=== PATIENT | female | born 1980 | race Caucasian/White ===

== ENCOUNTER 2018-06-17 22:04 | Emergency (ER) | payer BC, OTHER ==
[2018-06-17] MEDS ORDERED: FAMOTIDINE 20 MG/2 ML VIAL IV ONE (23:07)
[2018-06-17 23:16] LABS: Urine Blood NEGATIVE (NEG); Urine Glucose NEGATIVE (NEG); Urine Protein TRACE (NEG); Urine Specific Gravity 1.025 (1.005-1.030); Urine pH 5.5 (5.0-7.0)
[2018-06-17] MEDS ORDERED: FAMOTIDINE 20 MG TAB ONE (23:25)
[2018-06-17] MEDS ORDERED: ONDANSETRON 4 MG (ODT) TAB ONE (23:25)
[2018-06-17 23:56] LABS: ALT/SGPT 21 U/L (12-78); AST/SGOT 13 U/L (15-37); Albumin 3.7 g/dL (3.4-5.0); Alkaline Phosphatase 89 U/L (45-117); BUN Blood Urea Nitrogen 15 mg/dL (7-18); Bicarbonate 27 mmol/L (21-32); Bilirubin Direct < 0.1 mg/dL (0-0.2); Bilirubin Total 0.1 mg/dL (0.2-1.0); Glucose Level 171 mg/dL (74-106); Lipase 152 U/L (73-393); Potassium 3.8 mmol/L (3.5-5.1); Protein, Total 8.1 g/dL (6.4-8.2); Sodium Level 141 mmol/L (136-145); Troponin (Emerg Dept Use Only) < 0.02 ng/mL (0.0-0.045)
[2018-06-18 00:31] LABS: Absolute Lymphocytes (CBC) 1.7 K/uL (0.7-4.9); Absolute Monocytes 0.3 K/uL (0.1-1.3); Absolute Neutrophil 8.7 K/uL (1.8-8.0); Basophils % 0.7 % (0-1.3); Eosinophils % 0.5 % (0-4.4); Hematocrit 34.7 % (36.0-45.0); Lymphocytes % 15.4 % (15.3-44.8); MPV 7.7 fL (7.6-11.3); RBC Red Blood Cell Count 4.77 M/uL (3.86-4.86)
--- NOTE | 2018-06-18 00:35 | ER ---
Nurse's Notes [facility] Name: Toribio Espino Age: 37 yrs Sex: Female : 1980 Arrival Date: 06/17/2018 Time: 22:09 Bed 17 Private MD: Diagnosis: Cholelithiasis Presentation: 06/17 22:15 Presenting complaint: Patient states: that she is having chest pain and abd bloating. fc States her stomach feels full and tight. Positive for nausea, vomiting, diarrhea and increased burping. Denies any shortness of breath. Transition of care: patient was not received from another setting of care. Onset of symptoms was June 17, 2018 at 21:00. Risk Assessment: Do you want to hurt yourself or someone else? Patient reports no desire to harm self or others. Initial Sepsis Screen: Does the patient meet any 2 criteria?. Care prior to arrival: None. 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 - Social history:: Smoking status: Patient/guardian denies using tobacco, Patient uses alcohol, occasionally. - Ebola Screening: : Patient negative for fever greater than or equal to 101.5 degrees Fahrenheit, and additional compatible Ebola Virus Disease symptoms Patient denies exposure to infectious person Patient denies travel to an Ebola-affected area in the 21 days before illness onset. Screenin:28 Abuse screen: Denies threats or abuse. Nutritional screening: No deficits noted. fc Tuberculosis screening: No symptoms or risk factors identified. Fall Risk None identified. Assessment: 22:40 General: Appears in no apparent distress. uncomfortable, Behavior is calm, cooperative, jb4 appropriate for age. Pain: Complains of pain in abdomen Pain does not radiate. Pain currently is 6 out of 10 on a pain scale. Pain began gradually. Neuro: Level of Consciousness is awake, alert, obeys commands, Oriented to person, place, time. Cardiovascular: Patient's skin is warm and dry. Respiratory: Airway is patent Respiratory effort is even, unlabored, Respiratory pattern is regular, symmetrical. GI: Abdomen is non-distended, obese, Reports lower abdominal pain, upper abdominal pain, nausea. : No signs and/or symptoms were reported regarding the genitourinary system. EENT: No signs and/or symptoms were reported regarding the EENT system. Derm: Skin is intact, Skin is pink, warm \T\ dry. Musculoskeletal: Circulation, motion, and sensation intact. 23:40 Reassessment: Patient appears in no apparent distress at this time. No changes from jb4 previously documented assessment. Patient and/or family updated on plan of care and expected duration. Pain level reassessed. Patient is alert, oriented x 3, equal unlabored respirations, skin warm/dry/pink. 06/18 00:40 Reassessment: Patient appears in no apparent distress at this time. No changes from jb4 previously documented assessment. Patient and/or family updated on plan of care and expected duration. Pain level reassessed. Patient is alert, oriented x 3, equal unlabored respirations, skin warm/dry/pink. Vital Signs: 06/17 22:15 Weight 138.8 kg (R); Height 5 ft. 4 in. (162.56 cm) (R); Pain 8/10; fc 22:56 BP 165 / 86; Pulse 82; Resp 16; Temp 99.2(O); Pulse Ox 98% on R/A; jb4 23:15 BP 128 / 60; Pulse 81; Resp 16; Pulse Ox 100% on R/A; jb4 06/18 00:30 BP 128 / 66; Pulse 84; Resp 16; Pulse Ox 100% on R/A; jb4 06/17 22:15 Body Mass Index 52.52 (138.80 kg, 162.56 cm) ED Course: 06/17 22:09 Patient arrived in ED. as 22:15 Arm band placed on Patient placed in an exam room, on a stretcher. fc 22:15 Pulse ox on. NIBP on. jb4 22:15 Patient maintains SpO2 saturation greater than 95% on room air. jb4 22:27 Triage completed. fc 22:28 Nathalie William FNP-C is [facility]. kb 22:28 Juarez Rogers MD is Attending Physician. kb 22:28 Patient has correct armband on for positive identification. Placed in gown. Bed in low fc position. Call light in reach. 22:40 Asad Woods, RN is Primary Nurse. jb4 22:40 Urine collected: clean catch specimen, clear, casi colored, Amount Voided: 20mL EKG jp3 done, by ED staff, reviewed by Nathalie RAE. 22:59 Ultrasound completed. hr 22:59 US Abdomen Limited In Process Unspecified. EDMS 23:10 Missed attempt(s): 22 gauge in right forearm. Bleeding controlled, band aid applied, jp3 catheter tip intact. 03 00:49 No provider procedures requiring assistance completed. Patient did not have IV access jb4 during this emergency room visit. Administered Medications: 06/17 23:13 Not Given (Other Intervention Used): Pepcid 20 mg IVP once kb 23:18 Drug: Zofran 4 mg Route: PO; jb4 06/18 00:38 Follow up: Response: No adverse reaction; Nausea is decreased jb4 06/17 23:25 Drug: Pepcid 20 mg Route: PO; jb4 06/18 00:38 Follow up: Response: No adverse reaction; Marked relief of symptoms jb4 Outcome: 00:34 Discharge ordered by MD. kb 00:49 Discharged to home ambulatory. jb4 00:49 Condition: stable 00:49 Discharge instructions given to patient, Instructed on discharge instructions, follow up and referral plans. medication usage, Demonstrated understanding of instructions, follow-up care, medications, Prescriptions given X 2. 00:50 Patient left the ED. jb4 Signatures: Dispatcher [employer] EDCA Nathalie William FNP-C FNP-Ivonne Osborne Felicia, RN RN fc Martinez, Amelia as Asad Woods, RN RN jb4 Willard Delgado jp3 Corrections: (The following items were deleted from the chart) 00:46 06/17 22:40 Pain: Complains of pain in abdomen Pain does not radiate. Pain currently is jb4 6 out of 10 on a pain scale. jb4
--- NOTE | 2018-06-18 00:35 | EDPHYS ---
Physician Documentation [facility] Name: Toribio Espino Age: 37 yrs Sex: Female : 1980 Arrival Date: 06/17/2018 Time: 22:09 Bed 17 Private MD: ED Physician Juarez Rogers HPI: 06/17 23:51 This 37 yrs old Female presents to ER via Ambulatory with complaints of Chest kb Pain, Abdominal Pain. 23:51 The patient presents with abdominal pain in the right upper quadrant. Onset: The kb symptoms/episode began/occurred today. The symptoms do not radiate. Associated signs and symptoms: Pertinent positives: nausea and vomiting. The symptoms are described as constant. Modifying factors: The symptoms are alleviated by nothing, the symptoms are aggravated by pressure. Severity of pain: At its worst the pain was moderate in the emergency department the pain is unchanged. The patient has not experienced similar symptoms in the past. The patient has not recently seen a physician. 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 - Social history:: Smoking status: Patient/guardian denies using tobacco, Patient uses alcohol, occasionally. - Ebola Screening: : Patient negative for fever greater than or equal to 101.5 degrees Fahrenheit, and additional compatible Ebola Virus Disease symptoms Patient denies exposure to infectious person Patient denies travel to an Ebola-affected area in the 21 days before illness onset. ROS: 23:47 Constitutional: Negative for fever, chills, and weight loss, ENT: Negative for injury, kb pain, and discharge, Neck: Negative for injury, pain, and swelling, Respiratory: Negative for shortness of breath, cough, wheezing, and pleuritic chest pain, Back: Negative for injury and pain, MS/Extremity: Negative for injury and deformity, Skin: Negative for injury, rash, and discoloration, Neuro: Negative for headache, weakness, numbness, tingling, and seizure. 23:47 Cardiovascular: Positive for chest pain, of the anterior aspect of right upper chest. 23:47 Abdomen/GI: Positive for abdominal pain, nausea and vomiting, belching. Exam: 23:47 Constitutional: This is a well developed, well nourished patient who is awake, alert, kb and in no acute distress. Head/Face: Normocephalic, atraumatic. Chest/axilla: Normal chest wall appearance and motion. Nontender with no deformity. No lesions are appreciated. Cardiovascular: Regular rate and rhythm with a normal S1 and S2. No gallops, murmurs, or rubs. Normal PMI, no JVD. No pulse deficits. Respiratory: Lungs have equal breath sounds bilaterally, clear to auscultation and percussion. No rales, rhonchi or wheezes noted. No increased work of breathing, no retractions or nasal flaring. Back: No spinal tenderness. No costovertebral tenderness. Full range of motion. Skin: Warm, dry with normal turgor. Normal color with no rashes, no lesions, and no evidence of cellulitis. MS/ Extremity: Pulses equal, no cyanosis. Neurovascular intact. Full, normal range of motion. Neuro: Awake and alert, GCS 15, oriented to person, place, time, and situation. Cranial nerves II-XII grossly intact. Motor strength 5/5 in all extremities. Sensory grossly intact. Cerebellar exam normal. Normal gait. 23:47 Abdomen/GI: Inspection: obese Bowel sounds: normal, in all quadrants, Palpation: soft, in all quadrants, moderate abdominal tenderness, in the right upper quadrant. Vital Signs: 22:15 Weight 138.8 kg (R); Height 5 ft. 4 in. (162.56 cm) (R); Pain 8/10; fc 22:56 BP 165 / 86; Pulse 82; Resp 16; Temp 99.2(O); Pulse Ox 98% on R/A; jb4 23:15 BP 128 / 60; Pulse 81; Resp 16; Pulse Ox 100% on R/A; jb4 0315 00:30 BP 128 / 66; Pulse 84; Resp 16; Pulse Ox 100% on R/A; jb4 06/17 22:15 Body Mass Index 52.52 (138.80 kg, 162.56 cm) fc MDM: 06/17 22:29 Patient medically screened. kb 23:47 Data reviewed: vital signs, nurses notes. Data interpreted: Pulse oximetry: on room air kb is 100 %. Interpretation: normal. 06/18 00:34 Counseling: I had a detailed discussion with the patient and/or guardian regarding: the kb historical points, exam findings, and any diagnostic results supporting the discharge/admit diagnosis, lab results, radiology results, the need for outpatient follow up, a family practitioner, a general surgeon, to return to the emergency department if symptoms worsen or persist or if there are any questions or concerns that arise at home. 06/17 22:34 Order name: Hepatic Function; Complete Time: 23:59 kb 06/17 22:34 Order name: Basic Metabolic Panel; Complete Time: 23:59 kb 06/17 22:34 Order name: CBC with Diff; Complete Time: 00:33 kb 06/17 22:34 Order name: Lipase; Complete Time: 23:59 kb 06/17 22:34 Order name: Troponin (emerg Dept Use Only); Complete Time: 23:59 kb 06/17 23:07 Order name: Urine Dipstick--Ancillary (enter results); Complete Time: 23:17 mw2 06/17 22:34 Order name: Labs collected and sent; Complete Time: 23:20 kb 06/17 22:34 Order name: EKG; Complete Time: 22:35 kb 06/17 22:34 Order name: US Abdomen Limited kb 06/17 23:07 Order name: Urine --Ancillary (enter results); Complete Time: 23:17 mw2 06/17 22:34 Order name: EKG - Nurse/Tech; Complete Time: 22:40 kb Administered Medications: 06/17 23:13 Not Given (Other Intervention Used): Pepcid 20 mg IVP once kb 23:18 Drug: Zofran 4 mg Route: PO; 4 06/18 00:38 Follow up: Response: No adverse reaction; Nausea is decreased 06/17 23:25 Drug: Pepcid 20 mg Route: PO; 4 06/18 00:38 Follow up: Response: No adverse reaction; Marked relief of symptoms jb4 Disposition: 06/18/18 00:34 Discharged to Home. Impression: Cholelithiasis. - Condition is Stable. - Discharge Instructions: Cholelithiasis, [id number]. - Prescriptions for Bentyl 20 mg Oral Tablet - take 1 tablet by ORAL route every 6 hours As needed; 20 tablet. Zofran 4 mg Oral Tablet - take 1 tablet by ORAL route every 6 hours As needed; 20 tablet. - Medication Reconciliation Form, Thank You Letter, Antibiotic Education, Prescription Opioid Use form. - Follow up: Emergency Department; When: As needed; Reason: Worsening of condition. Follow up: Private Physician; When: 2 - 3 days; Reason: Recheck today's complaints, Continuance of care, Re-evaluation by your physician. Addendum: 06/20/2018 19:36 Co-signature as Attending Physician, Juarez Rogers MD. g s Signatures: Dispatcher [employer] EDMS Nathalie William, BUTCH CHENG-Jaquelin Bolivar RN RN Asad Woods RN RN jb4 Juarez Rogers MD MD Corrections: (The following items were deleted from the chart) 06/18 00:45 06/17 22:34 IV Saline Lock ordered. kb jb4 06/18 00:50 00:34 06/18/2018 00:34 Discharged to Home. Impression: Cholelithiasis. Condition is jb4 Stable. Forms are Medication Reconciliation Form, Thank You Letter, Antibiotic Education, Prescription Opioid Use. Follow up: Emergency Department; When: As needed; Reason: Worsening of condition. Follow up: Private Physician; When: 2 - 3 days; Reason: Recheck today's complaints, Continuance of care, Re-evaluation by your physician. kb
[2018-06-18 01:44] VITALS: TEMP 99.2
[2018-06-18 01:45] VITALS: O2SAT 100
[2018-06-18 01:46] VITALS: BP 128/66
--- NOTE | 2018-06-18 05:28 | EKG ---
Test Date: 2018-06-17 Test Time: 22:39:26 Hi Teacher: YANDY MEASUREMENT RESULTS: Intervals: Rate: 72 AZ: 128 QRSD: 80 QT: 420 QTc: 459 Delta: P: 40 AZ: 128 QRS: 25 T: 29 INTERPRETIVE STATEMENTS: Normal sinus rhythm Normal ECG No previous ECG available for comparison Electronically Signed On 06-18-18 05:27:33 CDT by Antwon Zamudio
--- NOTE | 2018-06-18 07:06 | RAD REPORT ---
EXAM DESCRIPTION: US - Abdomen Exam Limited - 06/17/2018 10:59 pm CLINICAL HISTORY: Abdominal pain, nausea and vomiting Preliminary findings provided at the time of the study. COMPARISON: None. FINDINGS: Multiple variably sized mobile gallstones are identified within a normal-sized gallbladder . There is no wall thickening or pericholecystic fluid. No duct stone or biliary tree dilatation. Common bile duct assessment was limited. IMPRESSION: Normal gallbladder and biliary tree ultrasound. No duct stones or biliary tree dilatation identified. Biliary tree assessment was limited. If there a re laboratory or clinical findings concerning for biliary obstruction, MRCP imaging may be helpful.
== END 2018-06-18 00:50 | disposition home or self-care (01) ==
LOC: ER 22:04
DX: K80.20 Calculus of gallbladder without cholecystitis without obstruction (principal); E11.9 Type 2 diabetes mellitus without complications; E78.00 Pure hypercholesterolemia, unspecified; F32.9 Major depressive disorder, single episode, unspecified; Z79.4 Long term (current) use of insulin
CPT/HCPCS: 36415; 76705; 80048; 80076; 81003; 81025; 83690; 84484; 85025; 93005; 99284

== ENCOUNTER 2018-10-02 23:27 | Emergency (ER) | payer BC ==
--- OUTSIDE RECORDS SUMMARY | 2018-10-02 23:30 | XMS REPORT ---
:1980 Author Organization [facility] Address [address] [place] [address] Care Team Providers Name Role Phone Unavailable Unavailable Unavailable Payers Payer Name Policy Type Policy Number Effective Date Expiration Date Problems This patient has no known problems. Allergies, Adverse Reactions, Alerts Allergy Allergy Status Severity Reaction(s) Onset Inactive Treating Comments Name Type Date Date Clinician No Known DA Active U 2018-08 Allergies -14 00:00:0 0 Medications This patient has no known medications. Results Test Description Test Time Test Comments Text Results Atomic Results Result Comments CERVIX,BIOPSY 2018-08-19 RUN DATE: 16:42:00 08/20/18 [facility] PAGE 1 RUN TIME: 1840 Specimen Inquiry RUN USER: INTERFACE PATIENT: GARRET CAROLINA LOC: IVAN U #: [id number] AGE/SX: 37/F ROOM: RE08/18/18REG DR: Jerome Murcia DO : 84 BED: DIS: STATUS: [facility] TLOC: SPEC #: [id number] RECD: 08/18/18 STATUS: YOANNA AVRILElvis # : [id number] MIRA: 08/18/18- SUBM DR: Jerome Murcia DO ENTERED: 08/18/18-1209 SP TYPE: CERVIXBX OTHR DR: ORDERED: LEVEL IV/ 3 CODES: [id number] - SOFT TISSUES, N [id number] - UTERINE CERVIX [id number] - ENDOCERVIX PROCEDURES: LEVEL IV (Incomplete) TISSUES: UTERINE CERVIX, NOS - CERVICAL BIOPSY ENDOCERVIX - ENDOCERVICAL CURETTINGS SOFT TISSUES, NOS - LIPOMA CLINICAL HISTORY 37 year old, ASC-H, lipoma (wpd) FINAL DIAGNOSIS Cervix, cone biopsy: - high-grade squamous intraepithelial lesion (MANAV 3) with focus of invasive squamous carcinoma (greatest horizontal dimension of invasive carcinoma - 1.1 cm; maximum depth of invasion - 1.3 cm) - lymphovascular invasion - not identified - margins - uncertain for involvement by high-grade dysplasia (a few fragments of high- grade dysplasia are detached from the main specimen; the relationship of these fragments to the margin is uncertain) - margins - no definite invasive carcinoma identified Endocervix, curettings: - few fragments of high-grade squamous intraepithelial lesion identified Designated "lipoma", excision: - mature adipose tissue, consistent with lipoma COMMENT: The [facility], [address] [place] [address], [address], [place] [address]. The interpretation is provided by [facility], [address] [place] [address]. Positive and/or negative controls received from [facility] stained appropriately. RESULTS: CONTINUED ON NEXT PAGE RUN DATE: 08/20/18 [facility] PAGE 2 RUN TIME: 1840 Specimen Inquiry RUN USER: INTERFACE SPEC #: [id number] PATIENT: GARRET CAROLINA #[id number] (Continued) FINAL DIAGNOSIS (Continued) P16 stain (block B1) - Positive block staining in few fragments of high-grade squamous dysplasia. COMMENT: Dr. Murcia's office is notified of the results by telephone on 08/20/18 at approximately 4:00 p.m. They will leave a message for Dr. Murcia regarding the abnormal results as detailed in this report. Tissue code 1 CPT code(s): 50881, 77378, 73278, 03902-88 pkg/wpd 08/19/18 pkg/kr dt: 08/20/18 pkg/wpd 08/20/18 GROSS DESCRIPTION ANATOMIC SOURCE OF TISSUE (per Requisition): 1. Cervical biopsy, stitch at 12:00 2. Endocervical curetting 3. Lipoma Each specimen is labeled with the patient's name and medical record number. Specimen #1 is designated "cervical biopsy, stitch at 12:00" and consists of a 1.7 x 1.2 cm nina-pink, rubbery, conical tissue excised to a depth of 0.3 cm. There is an identifiable suture which is designated by the surgeon as 12:00. The ectocervix is pink-white and smooth with an eccentrically located 0.4 cm slit-like os. The endocervix is nina-red, hemorrhagic and slightly granular with adherent blood-tinged mucoid material. Ink code: Ectocervix - black, endocervix - blue. Section code: A1 - 12:00 half, A2 - 6:00 half. Specimen #2 is designated "endocervical curetting" and consists of a 1.0 x 0.6 x 0.2 cm aggregate of blood-tinged mucoid material admixed with a scant amount of possible soft tissue, submitted in toto as B1. Specimen #3 is designated "lipoma" and consists of a 7.5 x 5.5 x 3.5 cm pink-yellow, lobulated, well-incapsulated fatty mass with overlying skin. The cut surfaces are bright yellow and homogenous. There are no areas of hemorrhage or necrosis. The epidermis is nina and slightly granular. The surgical resection margin is inked blue and patient intake representative sections are submitted as C1 and C2. gustavo/wpd 08/18/18 @ 1414 CONTINUED ON NEXT PAGE RUN DATE: 08/20/18 [facility] PAGE 3 RUN TIME: 1840 Specimen Inquiry RUN USER: INTERFACE SPEC #: [id number] PATIENT: GARRET CAROLINA #[id number] (Continued) MICROSCOPIC DESCRIPTION Specimen #1 consists of ecto- and endocervix including transformation zone. Severe squamous dysplasia is present and a focus of moderately- differentiated invasive squamous carcinoma is identified. No lymphovascular invasion is identified. The margins of resection are uncertain as fragments of high-grade squamous dysplasia are present detached from the main specimen and their relationship to the margin is uncertain. Specimen #2 consists of mostly unremarkable fragments of endocervical tissue. A few fragments of high -grade dysplastic squamous epithelial cells are present. Specimen #3 consists of skin and a nodular mass composed of mature adipose tissue. No atypia or malignancy is identified. pkg/greyson 08/19 Surgical Pathology Cancer Case Summary Protocol posting date: November 2017 UTERINE CERVIX: Excision Procedure: - Cone excision Tumor Size: Greatest dimension (centimeters): 1.1 cm Histologic Type: - Squamous cell carcinoma, NOS Histologic Grade: - G2: Moderately-differentiated Stromal Invasion: Depth of stromal invasion (millimeters): 13 mm Horizontal extent longitudinal/length (if applicable) (millimeters): 11 mm Endocervical Margin: - Uninvolved by invasive carcinoma Ectocervical Margin: - Uninvolved by invasive carcinoma Deep Margin: - Uninvolved by invasive carcinoma Lymphovascular Invasion: - Not identified CONTINUED ON NEXT PAGE RUN DATE: 08/20/18 [facility] PAGE 4 RUN TIME: 184 Specimen Inquiry RUN USER: INTERFACE SPEC #: [id number] PATIENT: CAITYGARRET #[id number] (Continued) MICROSCOPIC DESCRIPTION (Continued) Additional Pathologic Findings: - High-grade squamous intraepithelial lesion (MANAV 2 or 3) ochoa/greyson 08/20/18 Signed Mellissa Sterling 08/19/18 1642 END OF REPORT CERVIX,BIOPSY 2018-08-19 RUN DATE: 16:42:00 09/01/18 [facility] PAGE 1 RUN TIME: 1010 Specimen Inquiry RUN USER: INTERFACE PATIENT: GARRET CAROLINA LOC: BryonCLARKE U #: [id number] AGE/SX: 37/F ROOM: RE08/18/18CADE DR: Jerome Murcia DO : 84 BED: DIS: STATUS: DEP SDC TLOC: SPEC #: [id number] RECD: 08/18/18 STATUS: YOANNA REQ # : [id number] MIRA: 08/18/18- SUBM DR: Jerome Murcia DO ENTERED: 08/18/18-1210 SP TYPE: CERVIXBX OTHR DR: Alessia Thomas MD ORDERED: LEVEL IV/ 3, P16 PEROX AB ADDENDUM FINDINGS Addendum #1 Entered: 09/01/18 This addendum is a corrected report to correct the dimensional units of the tumor from "cm" to "mm". The remainder of the report is unchanged. COMMENT: At the request of Dr. Hernandes, the report is re-reviewed along with the histologic sections. It was noted that the measurements for the invasive carcinoma were inadvertently reported in centimeters as opposed to millimeters. The invasive carcinoma was remeasured on the histologic sections and it is confirmed that the greatest horizontal dimension of the invasive carcinoma is 1.1 mm (not cm) and that the maximum depth of the invasive carcinoma is 1.3 mm (not cm). An addendum with the corrected findings is issued. The patient and Dr. Jerome Murcia were contacted by myself by telephone at approximately 4:30 and 5:00 p.m., respectively. I discussed the situation with the patient and relayed the fact that the tumor was much smaller than what was originally reported and that an addendum report would be issued and sent to both Dr. Murcia and Dr. Hernandes. I encouraged the patient to follow up, as high-grade dysplasia was identified in the curetting specimen and I could not be certain if the margins of the cone were free of high-grade dysplasia or not. I also spoke to Dr. Murcia, informing her of my conversation with the patient and informing her that an addendum report with the corrected measurements would be faxed to her office. CORRECTED FINAL DIAGNOSIS: Cervix, cone biopsy: - high-grade squamous intraepithelial lesion (MANAV 3) with focus of invasive squamous carcinoma (greatest horizontal dimension of invasive carcinoma - 1.1 mm; maximum depth of invasion - 1.3 mm) - lymphovascular invasion - not identified - margins - uncertain for involvement by high-grade dysplasia (a few fragments of high-grade dysplasia are detached from the main specimen; the relationship of these fragments to the margin is uncertain) - margins - no definite invasive carcinoma identified Endocervix, curettings: - few fragments of high-grade squamous intraepithelial lesion identified Designated "lipoma", excision: - mature adipose tissue, consistent with lipoma CONTINUED ON NEXT PAGE RUN DATE: 09/01/18 [facility] PAGE 2 RUN TIME: 1010 Specimen Inquiry RUN USER: INTERFACE SPEC #: [id number] PATIENT: GARRET CAROLINA #[id number] (Continued) ADDENDUM FINDINGS (Continued) Mellissa Sterling M.D., Pathologist/wpd September 01, 2018 @ 0900 COMMENT: The following technical components were performed at [facility], [address] [place] [address], [address], [place] [address]. The interpretation is provided by [facility], [address] [place] [address], [place] [address]. Positive and/or negative controls received from [facility] stained appropriately. RESULTS: P16 stain (block B1) - Positive block staining in few fragments of high-grade squamous dysplasia. COMMENT: Dr. Murcia's office is notified of the results by telephone on 08/20/18 at approximately 4:00 p.m. They will leave a message for Dr. Murcia regarding the abnormal results as detailed in this report. Tissue code 1 CPT code(s): 39690, 29819, 18662, 63160-57 pkg/wpd 08/19/18 pkg/kr dt: 08/20/18 pkg/wpd CORRECTED MICROSCOPIC DESCRIPTION: Specimen #1 consists of ecto- and endocervix including transformation zone. Severe squamous dysplasia is present and a focus of moderately- differentiated invasive squamous carcinoma is identified. No lymphovascular invasion is identified. The margins of resection are uncertain as fragments of high-grade squamous dysplasia are present detached from the main specimen and their relationship to the margin is uncertain. Specimen #2 consists of mostly unremarkable fragments of endocervical tissue. A few fragments of high-grade dysplastic squamous epithelial cells are present. Specimen #3 consists of skin and a nodular mass composed of mature adipose tissue. No atypia or malignancy is identified. pkg/wpd 08/19/18 Surgical Pathology Cancer Case Summary CONTINUED ON NEXT PAGE RUN DATE: 09/01/18 [facility] PAGE 3 RUN TIME: 1010 Specimen Inquiry RUN USER: INTERFACE SPEC #: [id number] PATIENT: GARRET CAROLINA #[id number] (Continued) ADDENDUM FINDINGS (Continued) Protocol posting date: November 2017 UTERINE CERVIX: Excision Procedure: - Cone excision Tumor Size: Greatest dimension (centimeters): 1.1 mm Histologic Type: - Squamous cell carcinoma, NOS Histologic Grade: - G2: Moderately-differentiated Stromal Invasion: Depth of stromal invasion (millimeters): 1.3 mm Horizontal extent longitudinal/length (if applicable) (millimeters): 1.1 mm Endocervical Margin: - Uninvolved by invasive carcinoma Ectocervical Margin: - Uninvolved by invasive carcinoma Deep Margin: - Uninvolved by invasive carcinoma Lymphovascular Invasion: - Not identified Additional Pathologic Findings: - High-grade squamous intraepithelial lesion (MANAV 2 or 3) pktammy/greyson 08/20/18 GROSS DESCRIPTION: (unchanged) ANATOMIC SOURCE OF TISSUE (per Requisition): 1. Cervical biopsy, stitch at 12:00 2. Endocervical curetting 3. Lipoma Each specimen is labeled with the patient's name and medical record number. Specimen #1 is designated "cervical biopsy, stitch at 12:00" and consists of a 1.7 x CONTINUED ON NEXT PAGE RUN DATE: 09/01/18 [facility] PAGE 4 RUN TIME: 1010 Specimen Inquiry RUN USER: INTERFACE SPEC #: [id number] PATIENT: GARRET CAROLINA #[id number] (Continued) ADDENDUM FINDINGS (Continued) 1.2 cm nina-pink, rubbery , conical tissue excised to a depth of 0.3 cm. There is an identifiable suture which is designated by the surgeon as 12:00. The ectocervix is pink-white and smooth with an eccentrically located 0.4 cm slit-like os. The endocervix is nina-red, hemorrhagic and slightly granular with adherent blood-tinged mucoid material. Ink code: Ectocervix - black, endocervix - blue. Section code : A1 - 12:00 half, A2 - 6:00 half. Specimen #2 is designated "endocervical curetting" and consists of a 1.0 x 0.6 x 0.2 cm aggregate of blood-tinged mucoid material admixed with a scant amount of possible soft tissue, submitted in toto as B1. Specimen #3 is designated "lipoma" and consists of a 7.5 x 5.5 x 3.5 cm pink-yellow, lobulated, well-incapsulated fatty mass with overlying skin. The cut surfaces are bright yellow and homogenous. There are no areas of hemorrhage or necrosis. The epidermis is nina and slightly granular. The surgical resection margin is inked blue and patient intake representative sections are submitted as C1 and C2. gustavo/wpd 08/18/18 @ 1414 Addendum Signed Mellissa Sterling 09/01/18 1010 (prelim) AsherMellissa 09/01/18 1010 CODES: [id number] - SOFT TISSUES, N [id number] - UTERINE CERVIX [id number] - ENDOCERVIX COPIES TO: Alessia Thomas MD [address] [place] [address] [email or web address] Jerome Murcia DO [address] [place], [place] [id number] PROCEDURES: LEVEL IV (Incomplete) P16 PEROX AB ( Incomplete) CONTINUED ON NEXT PAGE RUN DATE: 09/01/18 [facility] PAGE 5 RUN TIME: 1010 Specimen Inquiry RUN USER: INTERFACE SPEC #: [id number] PATIENT: GARRET CAROLINA #[id number] (Continued) TISSUES: UTERINE CERVIX, NOS - CERVICAL BIOPSY ENDOCERVIX - ENDOCERVICAL CURETTINGS SOFT TISSUES, NOS - LIPOMA CLINICAL HISTORY 37 year old, ASC-H, lipoma (wpd) FINAL DIAGNOSIS Cervix, cone biopsy: - high-grade squamous intraepithelial lesion (MANAV 3) with focus of invasive squamous carcinoma (greatest horizontal dimension of invasive carcinoma - 1.1 cm; maximum depth of invasion - 1.3 cm) - lymphovascular invasion - not identified - margins - uncertain for involvement by high-grade dysplasia (a few fragments of high-grade dysplasia are detached from the main specimen; the relationship of these fragments to the margin is uncertain) - margins - no definite invasive carcinoma identified Endocervix, curettings: - few fragments of high-grade squamous intraepithelial lesion identified Designated "lipoma", excision: - mature adipose tissue, consistent with lipoma COMMENT: The following technical components were performed at [facility] , [address] [place] [address], [address], [place] [address]. The interpretation is provided by [facility], [address] [place] [address]. Positive and/or negative controls [facility] from [facility] stained appropriately. RESULTS: P16 stain (block B1) - Positive block staining in few fragments of high-grade squamous dysplasia. COMMENT: Dr. Murcia's office is notified of the results by telephone on 08/20/18 at approximately 4:00 p.m. They will leave a message for Dr. Murcia regarding the abnormal results as detailed in this report. Tissue code 1 CPT code(s): 89096, 10812, 53842, 57224-11 pkg/wpd 08/19/18 pkg/kr dt : 08/20/18 pkg/wpd 08/20/18 CONTINUED ON NEXT PAGE RUN DATE: 09/01/18 [facility] PAGE 6 RUN TIME: 1010 Specimen Inquiry RUN USER: INTERFACE SPEC #: [id number] PATIENT: GARRET CAROLINA #[id number] (Continued) GROSS DESCRIPTION ANATOMIC SOURCE OF TISSUE (per Requisition): 1. Cervical biopsy, stitch at 12:00 2. Endocervical curetting 3. Lipoma Each specimen is labeled with the patient's name and medical record number. Specimen #1 is designated " cervical biopsy, stitch at 12:00" and consists of a 1.7 x 1.2 cm nina-pink, rubbery, conical tissue excised to a depth of 0.3 cm. There is an identifiable suture which is designated by the surgeon as 12:00. The ectocervix is pink-white and smooth with an eccentrically located 0.4 cm slit-like os. The endocervix is nina-red, hemorrhagic and slightly granular with adherent blood-tinged mucoid material. Ink code: Ectocervix - black, endocervix - blue. Section code: A1 - 12:00 half, A2 - 6:00 half. Specimen #2 is designated "endocervical curetting" and consists of a 1.0 x 0.6 x 0.2 cm aggregate of blood-tinged mucoid material admixed with a scant amount of possible soft tissue, submitted in toto as B1. Specimen #3 is designated "lipoma" and consists of a 7.5 x 5.5 x 3.5 cm pink-yellow, lobulated, well-incapsulated fatty mass with overlying skin. The cut surfaces are bright yellow and homogenous. There are no areas of hemorrhage or necrosis. The epidermis is nina and slightly granular. The surgical resection margin is inked blue and patient intake representative sections are submitted as C1 and C2. gustavo/wpd 08/18/18 @ 3324 MICROSCOPIC DESCRIPTION Specimen #1 consists of ecto- and endocervix including transformation zone. Severe squamous dysplasia is present and a focus of moderately-differentiated invasive squamous carcinoma is identified. No lymphovascular invasion is identified. The margins of resection are uncertain as fragments of high-grade squamous dysplasia are present detached from the main specimen and their relationship to the margin is uncertain. Specimen #2 consists of mostly unremarkable fragments of endocervical tissue. A few fragments of high-grade dysplastic squamous epithelial cells are present. Specimen #3 consists of skin and a nodular mass composed of mature adipose tissue. No atypia or malignancy is identified. ochoa/wpd 08/19/18 Surgical Pathology Cancer Case Summary Protocol posting date: November 2017 CONTINUED ON NEXT PAGE RUN DATE: 09/01/18 [facility] PAGE 7 RUN TIME: 1010 Specimen Inquiry RUN USER: INTERFACE SPEC #: [id number] PATIENT: GARRET CAROLINA #[id number] (Continued) MICROSCOPIC DESCRIPTION (Continued) UTERINE CERVIX: Excision Procedure: - Cone excision Tumor Size: Greatest dimension (centimeters): 1.1 cm Histologic Type: - Squamous cell carcinoma, NOS Histologic Grade: - G2: Moderately-differentiated Stromal Invasion: Depth of stromal invasion (millimeters): 13 mm Horizontal extent longitudinal/length (if applicable) (millimeters) : 11 mm Endocervical Margin: - Uninvolved by invasive carcinoma Ectocervical Margin: - Uninvolved by invasive carcinoma Deep Margin: - Uninvolved by invasive carcinoma Lymphovascular Invasion: - Not identified Additional Pathologic Findings: - High-grade squamous intraepithelial lesion (MANAV 2 or 3) ochoa/greyson 08/20/18 Signed Mellissa Sterling 08/19/18 1642 END OF REPORT GLUBED 2018-08-18 10:35:00 Test Item Value Reference Range Comments GLUBED (test code=GLUBED) 147 mg/dL 65-110 [id number] 07:41:00 Test Item Value Reference Range Comments GLUBED (test code=GLUBED) 143 mg/dL 65-110 CHEMISTRY 7 [id number] 15:49:00 Test Item Value Reference Range Comments SODIUM (test code=NA) 141 mEq/L 135-145 POTASSIUM (test code=K) 4.1 mEq/L 3.5-5.0 CHLORIDE (test code=CL) 104 mEq/L 100-115 CARBON DIOXIDE (test code=CO2) 27 mEq/L 22-31 ANION GAP (test code=GAP) 14.00 10-20 GLUCOSE (test code=GLU) 218 mg/dL 65-110 BLOOD UREA NITROGEN (test code=BUN) 13 mg/dL 7-18 GLOMERULAR FILTRATION RATE (test code=GFR) 82 ml/min >60 CREATININE (test code=CREAT) 0.8 mg/dL 0.5-1.0 CALCIUM (test code=CA) 8.3 mg/dL 8.4-10.2 HCG SERUM [id number] 15:49:00 Test Item Value Reference Range Comments HCG SERUM QUAL (test code=HCGQL) NEGATIVE CHEMISTRY 7 [id number] 15:42:00 Test Item Value Reference Range Comments SODIUM (test code=NA) mEq/L 135-145 POTASSIUM (test code=K) mEq/L 3.5-5.0 CHLORIDE (test code=CL) mEq/L 100-115 CARBON DIOXIDE (test code=CO2) mEq/L 22-31 ANION GAP (test code=GAP) 10-20 GLUCOSE (test code=GLU) mg/dL 65-110 BLOOD UREA NITROGEN (test code=BUN) mg/dL 7-18 CREATININE (test code=CREAT) mg/dL 0.5-1.0 CALCIUM (test code=CA) mg/dL 8.4-10.2 HCG SERUM [id number] 15:42:00 Test Item Value Reference Range Comments HCG SERUM QUAL (test code=HCGQL) NEGATIVE CBC W/AUTO [id number] 15:24:00 Test Item Value Reference Range Comments WHITE BLOOD CELL (test code=WBC) 9.5 K/mm3 6.6-12.1 RED BLOOD CELL (test code=RBC) 4.56 M/mm3 3.45-5.01 HEMOGLOBIN (test code=HGB) 10.5 g/dL 10.7-13.9 HEMATOCRIT (test code=HCT) 35.8 % 32.1-42.1 MEAN CELL VOLUME (test code=MCV) 79 fL 84.1-94.8 MEAN CELL HGB (test code=MCH) 23.0 pg 27-35 MEAN CELL HGB CONCETRATION (test code=MCHC) 29.3 gm/dL 32.2-34.1 RED CELL DISTRIBUTION WIDTH (test code=RDW) 15.9 % 12.4-16.5 PLATELET COUNT (test code=PLT) 301 K/mm3 133-385 IMMATURE PLATELET FRACTION (test code=IPF) 0.0 % 0.0-10.8 MEAN PLATELET VOLUME (test code=MPV) 10.0 fl 9.1-12.7 NEUTROPHIL % (test code=NT%) 68.5 % 56.5-79.4 LYMPHOCYTE % (test code=LY%) 25.7 % 14.3-34.3 MONOCYTE % (test code=MO%) 4.6 % 5.1-10.4 EOSINOPHIL % (test code=EO%) 0.7 % 0.1-3.0 BASOPHIL % (test code=BA%) 0.3 % 0.1-1.0 NEUTROPHIL # (test code=NT#) 6.5 K/mm3 LYMPHOCYTE # (test code=LY#) 2.4 K/mm3 MONOCYTE # (test code=MO#) 0.4 K/mm3 EOSINOPHIL # (test code=EO#) 0.07 K/mm3 BASOPHIL # (test code=BA#) 0.0 K/mm3 RBC MORPHOLOGY REQUIRED (test code=RBCM) NORMAL NORMAL PLATELET MORPHOLOGY REQUIRED (test code=PLTMR) NORMAL NORMAL
[2018-10-03] MEDS ORDERED: HYDROCODONE/APAP 5/325 MG TAB ONE (00:08)
--- NOTE | 2018-10-03 00:47 | ER ---
Nurse's Notes [facility] Name: Toribio Espino Age: 37 yrs Sex: Female : 1980 Arrival Date: 10/02/2018 Time: 23:31 Bed 26 [facility] MD: Diagnosis: Pain in right ankle and joints of right foot Presentation: 10/02 23:36 Presenting complaint: Patient states: I twisted my right ankle earlier today, pt la1 reports can bear weight but with limp. Transition of care: patient was not received from another setting of care. Onset of symptoms. Risk Assessment: Do you want to hurt yourself or someone else? Patient reports no desire to harm self or others. Initial Sepsis Screen: Does the patient meet any 2 criteria? No. Patient's initial sepsis screen is negative. Does the patient have a suspected source of infection? No. Patient's initial sepsis screen is negative. Care prior to arrival: None. 23:36 Method Of Arrival: Wheelchair la1 23:36 Acuity: WARD 4 la1 Triage Assessment: 10/03 01:17 General: Appears. rv Historical: - Allergies: 10/02 23:37 No Known Allergies; la1 - PMHx: 23:37 Depression; Diabetes - IDDM; High Cholesterol; Cervical CA; la1 - PSHx: 23:37 LEEP; la1 - Immunization history:: Adult Immunizations up to date. - Social history:: Smoking status: Patient/guardian denies using tobacco. - Ebola Screening: : No symptoms or risks identified at this time. Screenin/30 01:16 Abuse screen: Denies threats or abuse. Denies injuries from another. Nutritional rv screening: No deficits noted. Tuberculosis screening: No symptoms or risk factors identified. Fall Risk No fall in past 12 months (0 pts). No secondary diagnosis (0 pts). No IV (0 pts). Ambulatory Aid- None/Bed Rest/Nurse Assist (0 pts). Gait- Impaired (20 pts.). Mental Status- Oriented to own ability (0 pts). Total Edgar Fall Scale indicates No Risk (0-24 pts). Assessment: 00:00 General: Appears in no apparent distress. uncomfortable, Behavior is calm, cooperative. rv 00:00 Pain: Complains of pain in right ankle. Neuro: Level of Consciousness is awake, alert, rv obeys commands, Oriented to person, place, time, situation. Cardiovascular: Patient's skin is warm and dry. Respiratory: Airway is patent. GI: No signs and/or symptoms were reported involving the gastrointestinal system. : No signs and/or symptoms were reported regarding the genitourinary system. EENT: No signs and/or symptoms were reported regarding the EENT system. Derm: Skin is intact. Musculoskeletal: Reports pain in right ankle. Vital Signs: 10/02 23:37 BP 125 / 64; Pulse 78; Resp 16; Temp 97.2; Pulse Ox 98% on R/A; Weight 136.08 kg; la1 Height 7 ft. 5 in. (226.06 cm); 10/03 01:14 BP 123 / 66; Pulse 71; Resp 17; Temp 97.5; Pulse Ox 98% ; rv 10/02 23:37 Body Mass Index 26.63 (136.08 kg, 226.06 cm) la1 ED Course: 10/02 23:31 Patient arrived in ED. do 23:36 Triage completed. la1 23:37 Arm band placed on left wrist. la1 23:42 Fran Skelton NP is PHCP. pm1 23:42 Juarez Rogers MD is Attending Physician. pm1 23:51 X-ray completed. Portable x-ray completed in exam room. Patient tolerated procedure kp1 well. 23:52 Philip Faye, JANI is Primary Nurse. rv 23:52 Ankle Right 3 View XRAY In Process Unspecified. EDMS 10/03 00:00 Bed in low position. Call light in reach. Side rails up X 1. Pulse ox on. NIBP on. rv 01:00 Air stirrup applied to right ankle. lt1 01:17 No provider procedures requiring assistance completed. Patient did not have IV access rv during this emergency room visit. Administered Medications: 10/02 23:55 Drug: [place] 5 mg-325 mg 1 tabs Route: PO; rv 10/03 01:14 Follow up: Response: Pain is decreased rv Outcome: 00:46 Discharge ordered by . pm1 01:17 Discharged to home ambulatory. rv 01:17 Condition: good 01:17 Discharge instructions given to patient, Instructed on discharge instructions, follow up and referral plans. medication usage, Demonstrated understanding of instructions, follow-up care, medications, splint care, Prescriptions given X 1. 01:18 Patient left the ED. rv Signatures: Dispatcher [employer] EDMS Yaw Cole RN RN la1 Mireille Shahid Patrick, BRAILLE TRANSCRIBER BRAILLE TRANSCRIBER pm1 Jocelyn Adams kp1 [place] Faye RN RN rv Tran, Jael [facility]
--- NOTE | 2018-10-03 00:47 | EDPHYS ---
Physician Documentation [facility] Name: Toribio Espino Age: 37 yrs Sex: Female : 1980 Arrival Date: 10/02/2018 Time: 23:31 Bed 26 Private MD: ED Physician Juarez Rogers HPI: 10/03 00:02 This 37 yrs old Female presents to ER via Wheelchair with complaints of Right pm1 Ankle Injury. 00:02 The patient presents with pain, that is acute. The complaints affect the right ankle. pm1 Context: The problem was sustained at home, resulted from inverted right foot, the patient can fully bear weight, the patient is able to ambulate, with mild difficulty, Problem is a result from a previous injury: No. Onset: The symptoms/episode began/occurred this morning. Modifying factors: The symptoms are alleviated by rest. the symptoms are aggravated by weight bearing. Associated signs and symptoms: Pertinent positives: swelling, Pertinent negatives calf tenderness, fever, numbness, tingling. Treatment prior to arrival includes: over the counter medications, Tylenol. Severity of symptoms: in the emergency department the symptoms are unchanged. The patient has not experienced similar symptoms in the past. Historical: - Allergies: 10/02 23:37 No Known Allergies; la1 - PMHx: 23:37 Depression; Diabetes - IDDM; High Cholesterol; Cervical CA; la1 - PSHx: 23:37 LEEP; la1 - Immunization history:: Adult Immunizations up to date. - Social history:: Smoking status: Patient/guardian denies using tobacco. - Ebola Screening: : No symptoms or risks identified at this time. ROS: 10/03 00:02 Constitutional: Negative for fever, chills, and weight loss, Eyes: Negative for injury, pm1 pain, redness, and discharge, ENT: Negative for injury, pain, and discharge, Neck: Negative for injury, pain, and swelling, Cardiovascular: Negative for chest pain, palpitations, and edema, Respiratory: Negative for shortness of breath, cough, wheezing, and pleuritic chest pain, Abdomen/GI: Negative for abdominal pain, nausea, vomiting, diarrhea, and constipation, Back: Negative for injury and pain, : Negative for injury, bleeding, discharge, and swelling. Skin: Negative for injury, rash, and discoloration, Neuro: Negative for headache, weakness, numbness, tingling, and seizure. MS/extremity: Positive for pain, of the right ankle, Negative for decreased range of motion, deformity. Exam: 00:02 Constitutional: This is a well developed, well nourished patient who is awake, alert, pm1 and in no acute distress. Head/Face: Normocephalic, atraumatic. Neck: Trachea midline, no thyromegaly or masses palpated, and no cervical lymphadenopathy. Supple, full range of motion without nuchal rigidity, or vertebral point tenderness. No Meningismus. Chest/axilla: Normal chest wall appearance and motion. Nontender with no deformity. No lesions are appreciated. Cardiovascular: Regular rate and rhythm with a normal S1 and S2. No gallops, murmurs, or rubs. Normal PMI, no JVD. No pulse deficits. Respiratory: Lungs have equal breath sounds bilaterally, clear to auscultation and percussion. No rales, rhonchi or wheezes noted. No increased work of breathing, no retractions or nasal flaring. Skin: Warm, dry with normal turgor. Normal color with no rashes, no lesions, and no evidence of cellulitis. 00:02 Musculoskeletal/extremity: Extremities: grossly normal except: noted in the right ankle lateral aspect: swelling, tenderness, There is no evidence of decreased ROM, deformity. Vital Signs: 10/02 23:37 BP 125 / 64; Pulse 78; Resp 16; Temp 97.2; Pulse Ox 98% on R/A; Weight 136.08 kg; la1 Height 7 ft. 5 in. (226.06 cm); 10/03 01:14 BP 123 / 66; Pulse 71; Resp 17; Temp 97.5; Pulse Ox 98% ; rv 10/02 23:37 Body Mass Index 26.63 (136.08 kg, 226.06 cm) la1 MDM: 10/02 23:44 Patient medically screened. pm1 10/03 00:44 Data reviewed: vital signs. Data interpreted: Pulse oximetry: on room air is 98 %. pm1 Interpretation: normal. Counseling: I had a detailed discussion with the patient and/or guardian regarding: the historical points, exam findings, and any diagnostic results supporting the discharge/admit diagnosis, radiology results, the need for outpatient follow up, to return to the emergency department if symptoms worsen or persist or if there are any questions or concerns that arise at home. 10/02 23:38 Order name: Ankle Right 3 View XRAY la1 10/03 00:37 Order name: Aircast Ankle Splint; Complete Time: 01:01 pm1 Administered Medications: 10/02 23:55 Drug: [place] 5 mg-325 mg 1 tabs Route: PO; rv 10/03 01:14 Follow up: Response: Pain is decreased rv Disposition: 04:23 Co-signature as Attending Physician, Juarez Rogers MD. Disposition: 10/03/18 00:46 Discharged to Home. Impression: Pain in right ankle and joints of right foot. - Condition is Stable. - Discharge Instructions: Ankle Sprain, Cast or Splint Care, Adult, Crutch Use, Ankle Pain. - Prescriptions for Tylenol- Codeine #3 300-30 mg Oral Tablet - take 2 tablets by ORAL route every 6 hours As needed; 20 tablet. - Medication Reconciliation Form, Thank You Letter, Antibiotic Education, Prescription Opioid Use form. - Follow up: Emergency Department; When: As needed; Reason: Worsening of condition. Follow up: Private Physician; When: 2 - 3 days; Reason: Recheck today's complaints, Continuance of care, Re-evaluation by your physician. - Problem is new. - Symptoms have improved. Signatures: Dispatcher [employer] EDMS Yaw Cole RN RN la1 Fran Skelton, REFRIGERATING MACHINE OPERATOR REFRIGERATING MACHINE OPERATOR pm1 Juarez Rogers MD MD Philip Faye RN RN rv Corrections: (The following items were deleted from the chart) 01:14 00:37 Crutches ordered. pm1 rv 01:18 00:46 10/03/2018 00:46 Discharged to Home. Impression: Pain in right ankle and joints rv of right foot. Condition is Stable. Forms are Medication Reconciliation Form, Thank You Letter, Antibiotic Education, Prescription Opioid Use. Follow up: Emergency Department; When: As needed; Reason: Worsening of condition. Follow up: Private Physician; When: 2 - 3 days; Reason: Recheck today's complaints, Continuance of care, Re-evaluation by your physician. Problem is new. Symptoms have improved. pm1
[2018-10-03 01:52] VITALS: O2SAT 98
[2018-10-03 01:53] VITALS: BP 123/66; TEMP 97.5
--- NOTE | 2018-10-03 10:55 | RAD REPORT ---
EXAM DESCRIPTION: RAD - Ankle Right 3 View - 10/02/2018 11:54 pm CLINICAL HISTORY: PAIN Twisting injury to ankle. COMPARISON: No comparisons FINDINGS: No acute fracture or subluxation is seen. Mild soft tissue swelling is evident.
== END 2018-10-03 01:18 | disposition home or self-care (01) ==
LOC: ER 23:27
DX: M25.571 Pain in right ankle and joints of right foot (principal); F32.9 Major depressive disorder, single episode, unspecified; E11.9 Type 2 diabetes mellitus without complications; E78.00 Pure hypercholesterolemia, unspecified; C53.9 Malignant neoplasm of cervix uteri, unspecified
CPT/HCPCS: 99284

== ENCOUNTER 2020-07-12 11:42 | Observation (INO) | payer BC ==
--- OUTSIDE RECORDS SUMMARY | 2020-07-12 11:45 | XMS REPORT | Continuity of Care Document ---
:1980 Author Organization [facility] t Address [address] [place] [address] Care Team Providers Name Role Phone Cordell FERREIRA Primary Care Physician Bayron FERREIRA Attending Clinician Provider, Urgent Care Attending Clinician Unavailable Lab, Fam Pob I Attending Clinician Unavailable Heather COHEN Attending Clinician Payers Payer Name Policy Type Policy Number Effective Date Expiration Date S nela BLUE CROSS BLUE [id number] 2018 MD Alex MCG[place] 00:00:00 [id number] 04/2018-PresentPPO Problems Condition Condition Condition Status Onset Resolution Last Treating Co mments Source Name Details Category Date Date Treatment Clinician Date Painless Painless Disease Active Overview: rectal rectal 04-28 Added Anderso bleeding bleeding 00:00: automatic n 00 ally from request for surgery [id number] History of History of Disease Active Overview : sleeve sleeve 04-28 Added Anderso gastrectom gastrectom 00:00: automatic n y y 00 ally from request for surgery [id number] Gastro-eso Gastro-eso Disease Active Overview : phageal phageal 04-28 Added Anderso reflux reflux 00:00: automatic n disease disease 00 ally from without without request esophagiti esophagiti for s s surgery [id number] Malignant Malignant Disease Active neoplasm neoplasm 5-30 Raymond o of of 00:00: n exocervix exocervix 00 Morbid Morbid Disease Active obesity obesity 09-02 Anderso 00:00: n 00 History of History of Disease Active M D dysplasia dysplasia 09-02 Alex rso of cervix of cervix 00:00: n 00 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 Insulin Insulin Disease Active treated treated 09-02 Anderso type 2 type 2 00:00: 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 Allergies, Adverse Reactions, Alerts Allergy Allergy Status Severity Reaction(s) Onset Inactive Treating Comm ents Source Name Type Date Date Clinician No Known DA Active [facility] [place] Family History Family Member Diagnosis Comments Start Date Stop Date Source Maternal great-grandmother Colon cancer MD Grant Paternal grandmother Diabetes MD Arvin allen Natural father Diabetes MD Clint maher Maternal grandfather Aneurysm MD Arvin allen Maternal grandmother Heart attack MD Grant Maternal grandmother Heart disease Shantal Grant Social History Social Habit Start Date Stop Date Quantity Comments Source Sex Assigned At MD Andrade on Tobacco use and 2019-05-11 2019-05-11 Never used MD Andrade on exposure 00:00:00 00:00:00 Alcohol intake 2019-05-11 2019-05-11 Current drinker MD Linda melchor 00:00:00 00:00:00 of alcohol (finding) History SDOH 2018-09-02 2018-09-02 21 MD Grant Education 00:00:00 00:00:00 Alcohol Comment 2018-09-02 2018-09-02 Only socially 00:00:00 00:00:00 about once a month Smoking Status Start Date Stop Date Source Never smoker MD Grant Medications Ordered Filled Start Stop Current Ordering Indication Dosage Frequency Signature Comments Components Source Medication Medication Date Date Medication? Clinician (SIG) Name Name pantoprazol 2019-04 Yes Gastro-esop TAKE 1 MD catalan 04-08 hageal TABLET BY Clint (PROTONIX) 00:00: reflux MOUTH n 40 mg EC 00 disease EVERY DAY tablet without 30 esophagitis MINUTEST , not BEFORE otherwise BREAKFAST specified pantoprazol 2020-0 2020- No Gastro-esop 40mg TAKE 1 MD e 8- 11-03 hageal TABLET (40 Raymond o (PROTONIX) 00:00: 00:00 reflux MG) BY n 40 mg EC 00 :00 disease MOUTH tablet without DAILY WITH esophagitis BREAKFAST. , not TAKE 30 otherwise MINUTES specified BEFORE BREAKFAST pantoprazol 2019-2019- No Gastro-esop 40mg Take 1 MD e 5- 08-04 hageal tablet (40 Raymond o (Protonix) 00:00: 00:00 reflux mg) by n 40 mg EC 00 :00 disease mouth tablet without daily with esophagitis breakfast. , not Take 30 otherwise minutes specified before breakfast ferrous 2019- Yes Other 325mg Take 1 MD sulfate 325 2-18 vitamin B12 tablet Anderso (65 FE) MG 00:00: deficiency (325 mg) n EC tablet 00 anemia by mouth 3 (three) times a day with meals. cyanocobala 2020- No Other 1000ug Take 1 MD min 2-18 02-18 vitamin B12 tablet Sam so (vitamin 00:00: 05:59 deficiency (1,000 n B-12) 1000 00 :00 anemia mcg) by mcg tablet mouth daily. bismuth Yes Chew as MD subsalicyla 2-13 needed. Sam so te 17:00: n (PEPTO-BISM 13 OL) 262 mg chewable tablet BUPROPION 2019- Yes Take by MD HCL ORAL 2-13 mouth Anderso 17:00: twice n 13 daily. pantoprazol 2019- No Gastro-esop 40mg Take 1 MD e 04-28 05-05 hageal tablet (40 Raymond o (PROTONIX) 00:00: 00:00 reflux mg) by n 40 mg EC 00 :00 disease mouth tablet without daily with esophagitis breakfast. , not Take 30 otherwise minutes specified before breakfast ibuprofen 2018- Yes Carcinoma 800mg Take 1 MD (ADVIL,MOTR 7-03 in situ of tablet Anderso IN) 800 mg 00:00: uterine (800 mg) n tablet 00 cervix by mouth 3 (three) times a day with meals. acetaminoph Yes Carcinoma 1000mg Take 2 MD en (TYLENOL 7-03 in situ of tablets Anderso EXTRA 00:00: uterine (1,000 mg) n STRENGTH) 00 cervix by mouth 500 mg every 6 tablet (six) hours as needed for mild pain. NOVOLOG Yes 15U Inject 15 MD FLEXPEN 5-29 Units Anderso U-100 00:00: under the n INSULIN 100 00 skin 3 unit/mL (3 (three) mL) insulin times a pen day before meals. 15 units at meals TRESIBA Yes INJECT 65 MD FLEXTOUCH 5-16 UNITS Anderso U-200 200 00:00: SUBCUTANEO n unit/mL (3 00 USLY EVERY mL) inpn NIGHT Procedures This patient has no known procedures. Encounters Start End Encounter Admission Attending Care Care Encounter Source Date/Time Date/Time Type Type Clinicians Facility Department ID 2020-06-25 2020-06-25 Urgent Provider, [facility] [id number] 18:57:15 19:17:15 [facility] [id number] Care [place] [id number] Professio [phone] nal 0[address] One 2020-04-07 2020-04-07 Laboratory Lab, [facility] [id number] 19:47:07 20:07:07 Only Fam P[facility] I [facility] [id number] [place] [id number] Professio [phone] nal 044 Office [address] One Results Test Description Test Time Test Comments Results Result [facility] e Comments CERVIX,BIOPSY 2018-08-19 16:42:00 ----RUN DATE: 08/20/18 [facility] PAGE 1 RUN TIME: 1840 Specimen Inquiry RUN USER: INTERFACE ----PATIENT: GARRET CAROLINA LOC: IVAN U #: [id number] AGE/SX: 37/F ROOM: RE08/18/18REG DR: Jerome Murcia DO : 82 BED: DIS: STATUS: [facility] TLOC: ---- SPEC #: [id number] RECD: 08/18/18 STATUS: YOANNA VALENCIA #: [id number] MIRA: 08/18/18- SUBM DR: Jerome Murcia DO ENTERED: 08/18/18-0 SP TYPE: CERVIXBX OTHR DR: ORDERED: LEVEL IV/3 CODES: [id number] - SOFT TISSUES, N [id number] - UTERINE CERVIX C37500 - ENDOCERVIX PROCEDURES: LEVEL IV (Incomplete) TISSUES: [...] The following technical components were performed at [facility] [place], [address], [address], [place] [address]. The interpretation is provided by [facility], [address], [place] [address]. Positive and/or negative controls received from [facility] stained appropriately. RESULTS: CONTINUED ON NEXT PAGE ----RUN DATE: 08/20/18 [facility] PAGE 2 RUN TIME: 1840 Specimen Inquiry RUN USER: INTERFACE ----SPEC #: [id number] PATIENT: GARRET CAROLINA #[id number] (Continued) FINAL DIAGNOSIS (Continued) P16 stain (block B1) - Positive block staining in few fragments of high-grade squamous dysplasia. COMMENT: Dr. Murcia's office is notified of the results by telephone on 08/20/18 at approximately 4:00 p.m. They will leave a message for Dr. Murcia regarding the abnormal results as detailed in this report. Tissue code 1 CPT code(s): 57180, 06936, 53868, 23302-63 ochoa/wpmariela 08/19/18 ochoa/clint dt: 08/20/18 ochoa/greyson 08/20/18 GROSS DESCRIPTION ANATOMIC SOURCE OF TISSUE [...] surgical resection margin is inked blue and congressional representative sections are submitted as C1 and C2. gustavo/greyson 08/18/18 @ 1414 CONTINUED ON NEXT PAGE ----RUN DATE: 08/20/18 [facility] PAGE 3 RUN TIME: 1841 Specimen Inquiry RUN USER: INTERFACE ----SPEC #: [id number] PATIENT: GARRET CAROLINA #[id number] (Continued) MICROSCOPIC DESCRIPTION Specimen #1 consists of ecto- and endocervix including transformation zone. Severe squamous dysplasia is present and a focus of moderately-differentia tha invasive squamous carcinoma is identified. No lymphovascular [...] tissue. No atypia or malignancy is identified. ochoa/greyson 08/19/18 Surgical Pathology Cancer Case Summary Protocol posting date: November 2017 UTERINE CERVIX: Excision Procedure: - Cone excision Tumor Size: Greatest dimension (centimeters): 1.1 cm Histologic Type: - Squamous cell carcinoma, NOS Histologic Grade: - G2: Moderately-differentia tha Stromal Invasion: Depth of stromal invasion (millimeters): 13 mm Horizontal extent longitudinal/length (if applicable) (millimeters): 11 mm Endocervical Margin: - Uninvolved by invasive carcinoma Ectocervical Margin: - Uninvolved by invasive carcinoma Deep Margin: - Uninvolved by invasive carcinoma Lymphovascular Invasion: - Not identified CONTINUED ON NEXT PAGE ----RUN DATE: 08/20/18 [facility] PAGE 4 RUN TIME: 184 Specimen Inquiry RUN USER: INTERFACE ----SPEC #: [id number] PATIENT: GARRET CAROLINA #[id number] (Continued) MICROSCOPIC DESCRIPTION (Continued) Additional Pathologic Findings: - High-grade squamous intraepithelial lesion (MANAV 2 or 3) ochoa/greyson 08/20/18 Signed Mellissa Sterling 08/19/18 1642 ---- END OF REPORT CERVIX,BIOPSY 2018-08-19 16:42:00 ----RUN DATE: 09/01/18 [facility] PAGE 1 RUN TIME: 1010 Specimen Inquiry RUN USER: INTERFACE ----PATIENT: GARRET CAROLINA LOC: BryonU U #: [id number] AGE/SX: 37/F ROOM: RE08/18/18CADE DR: Jerome Murcia DO : 82 BED: DIS: STATUS: [facility] TLOC: ---- SPEC #: [id number] RECD: 08/18/18 STATUS: YOANNA VALENCIA #: [id number] MIRA: 08/18/18- SUBM DR: Jerome Murcia DO ENTERED: 08/18/18 SP TYPE: CERVIXBX OTHR DR: Alessia Thomas MD ORDERED: LEVEL IV/3, P16 PEROX AB ADDENDUM FINDINGS Addendum #1 [...] consistent with lipoma CONTINUED ON NEXT PAGE ----RUN DATE: 09/01/18 [facility] PAGE 2 RUN TIME: 1010 Specimen Inquiry RUN USER: INTERFACE ----SPEC #: [id number] PATIENT: GARRET CAROLINA #[id number] (Continued) ADDENDUM FINDINGS (Continued) Mellissa Sterling M.D., Pathologist/wpd September 01, 2018 @ 0900 COMMENT: The following [facility] components [facility], [address] [place] [address], [address], [place] [address]. The interpretation is provided by [facility] [facility], [address] [facility] [place] [address]. Positive and/or negative controls received from [facility] stained appropriately. RESULTS: P16 stain (block B1) - Positive block staining in few fragments of high-grade squamous dysplasia. COMMENT: Dr. Murcia's office is notified of the results by telephone on 08/20/18 at approximately 4:00 p.m. They will leave a message for Dr. Murcia regarding the abnormal results as detailed in this report. Tissue code 1 CPT code(s): 78366, 68454, 54205, 18557-13 pkg/wpd 08/19/18 pkg/kr dt: 08/20/18 pkg/wpd 08/31/18 CORRECTED MICROSCOPIC DESCRIPTION: Specimen #1 consists of ecto- and endocervix including transformation zone. Severe squamous dysplasia is present and a focus of moderately-differentia tha invasive squamous carcinoma is identified. No lymphovascular [...] Cancer Case Summary CONTINUED ON NEXT PAGE ----RUN DATE: 09/01/18 [facility] PAGE 3 RUN TIME: 1010 Specimen Inquiry RUN USER: INTERFACE ----SPEC #: [id number] PATIENT: GARRET CAROLINA #[id number] (Continued) ADDENDUM FINDINGS (Continued) Protocol posting date: November 2017 UTERINE CERVIX: Excision Procedure: - Cone excision Tumor Size: Greatest dimension (centimeters): 1.1 mm Histologic Type: - Squamous cell carcinoma, NOS Histologic Grade: - G2: Moderately-differentia tha Stromal Invasion: Depth of stromal invasion (millimeters): 1.3 mm Horizontal extent longitudinal/length (if applicable) (millimeters): 1.1 mm Endocervical Margin: - Uninvolved by invasive carcinoma Ectocervical Margin: - Uninvolved by invasive carcinoma Deep Margin: - Uninvolved by invasive carcinoma Lymphovascular Invasion: - Not identified Additional Pathologic Findings: - High-grade squamous intraepithelial lesion (MANAV 2 or 3) pkg/wpmariela 08/20/18 GROSS DESCRIPTION: (unchanged) ANATOMIC SOURCE OF TISSUE (per Requisition): 1. Cervical biopsy, stitch at 12:00 2. Endocervical curetting 3. Lipoma Each specimen is labeled with the patient's name and medical record number. Specimen #1 is designated "cervical biopsy, stitch at 12:00" and consists of a 1.7 x CONTINUED ON NEXT PAGE ----RUN DATE: 09/01/18 [facility] PAGE 4 RUN TIME: 1010 Specimen Inquiry RUN USER: INTERFACE ----SPEC #: [id number] PATIENT: GARRET CAROLINA #[id number] (Continued) ADDENDUM FINDINGS (Continued) 1.2 cm nina-pink, rubbery, conical tissue excised [...] surgical resection margin is inked blue and congressional representative sections are submitted as C1 and C2. gustavo/wpd 08/18/18 @ 1414 Addendum Signed AsherMellissa 09/01/18 1010 (prelim) AsherMellissa 09/01/18 1010 ---- CODES: [id number] - SOFT TISSUES, N J13943 - UTERINE CERVIX S52037 - ENDOCERVIX COPIES TO: Alessia Thomas MD [address] [place] [address] [email or web address] DO [address] [place] [address] PROCEDURES: LEVEL IV (Incomplete) P16 PEROX AB (Incomplete) CONTINUED ON NEXT PAGE ----RUN DATE: 09/01/18 [facility] PAGE 5 RUN TIME: 1010 Specimen Inquiry RUN USER: INTERFACE ----SPEC #: [id number] PATIENT: GARRET CAROLINA #[id number] (Continued) TISSUES: UTERINE CERVIX, NOS - CERVICAL [...] The following technical components were performed at [facility], [address] [place] [address], [address], [place] [address]. The interpretation is provided by [place] [facility], [address] [place] [address]. Positive and/or negative controls received from [facility] stained appropriately. RESULTS: P16 stain (block B1) - Positive block staining in few fragments of high-grade squamous dysplasia. COMMENT: Dr. Murcia's office is notified of the results by telephone on 08/20/18 at approximately 4:00 p.m. They will leave a message for Dr. Murcia regarding the abnormal results as detailed in this report. Tissue code 1 CPT code(s): 28915, 11267, 85926, 12340-60 pkg/wpd 08/19/18 pkg/kr dt: 08/20/18 pkg/wpd 05/17/19 CONTINUED ON NEXT PAGE ----RUN DATE: 09/01/18 [facility] PAGE 6 RUN TIME: 1010 Specimen Inquiry RUN USER: INTERFACE ----SPEC #: [id number] PATIENT: GARRET CAROLINA #[id number] (Continued) GROSS DESCRIPTION ANATOMIC SOURCE OF TISSUE [...] surgical resection margin is inked blue and congressional representative sections are submitted as C1 and C2. /wpd 08/18/18 @ 8834 MICROSCOPIC DESCRIPTION Specimen #1 consists of ecto- and endocervix including transformation zone. Severe squamous dysplasia is present and a focus of moderately-differentia tha invasive squamous carcinoma is identified. No lymphovascular [...] date: November 2017 CONTINUED ON NEXT PAGE ----RUN DATE: 09/01/18 [facility] PAGE 7 RUN TIME: 1010 Specimen Inquiry RUN USER: INTERFACE ----SPEC #: [id number] PATIENT: GARRET CAROLINA #[id number] (Continued) MICROSCOPIC DESCRIPTION (Continued) UTERINE CERVIX: Excision Procedure: - Cone excision Tumor Size: Greatest dimension (centimeters): 1.1 cm Histologic Type: - Squamous cell carcinoma, NOS Histologic Grade: - G2: Moderately-differentia tha Stromal Invasion: Depth of stromal invasion (millimeters): 13 mm Horizontal extent longitudinal/length (if applicable) (millimeters): 11 mm Endocervical Margin: - Uninvolved by invasive carcinoma Ectocervical Margin: - Uninvolved by invasive carcinoma Deep Margin: - Uninvolved by invasive carcinoma Lymphovascular Invasion: - Not identified Additional Pathologic Findings: - High-grade squamous intraepithelial lesion (MANAV 2 or 3) ochoa/greyson 08/20/18 Signed Mellissa Sterling 08/19/18 1642 ---- END OF REPORT GLUBED 2018-08-18 10:35:00 Test Item Value Reference Range Interpretation Comme nts GLUBED (test code = GLUBED) 147 mg/dL 65-110 H [id number] 07:41:00 Test Item Value Reference Range Interpretation Comments GLUBED (test code = GLUBED) 143 mg/dL 65-110 H CHEMISTRY 7 [id number] 15:49:00 Test Item Value Reference Range Interpretation Comments SODIUM (test code = NA) 141 mEq/L 135-145 N POTASSIUM (test code = K) 4.1 mEq/L 3.5-5.0 N CHLORIDE (test code = CL) 104 mEq/L 100-115 N CARBON DIOXIDE (test code = CO2) 27 mEq/L 22-31 N ANION GAP (test code = GAP) 14.00 10-20 N GLUCOSE (test code = GLU) 218 mg/dL 65-110 H BLOOD UREA NITROGEN (test code = 13 mg/dL 7-18 N BUN) GLOMERULAR FILTRATION RATE (test 82 ml/min >60 N code = GFR) CREATININE (test code = CREAT) 0.8 mg/dL 0.5-1.0 N CALCIUM (test code = CA) 8.3 mg/dL 8.4-10.2 L HCG SERUM [id number] 15:49:00 Test Item Value Reference Range Interpretation Comments HCG SERUM QUAL (test code = HCGQL) NEGATIVE CHEMISTRY 7 [id number] 15:42:00 Test Item Value Reference Range Interpretation Comments SODIUM (test code = NA) mEq/L 135-145 POTASSIUM (test code = K) mEq/L 3.5-5.0 CHLORIDE (test code = CL) mEq/L 100-115 CARBON DIOXIDE (test code = CO2) mEq/L 22-31 ANION GAP (test code = GAP) 10-20 GLUCOSE (test code = GLU) mg/dL 65-110 BLOOD UREA NITROGEN (test code = BUN) mg/dL 7-18 CREATININE (test code = CREAT) mg/dL 0.5-1.0 CALCIUM (test code = CA) mg/dL 8.4-10.2 HCG SERUM [id number] 15:42:00 Test Item Value Reference Range Interpretation Comments HCG SERUM QUAL (test code = HCGQL) NEGATIVE CBC W/AUTO [id number] 15:24:00 Test Item Value Reference Range Interpretation Comments WHITE BLOOD CELL (test code = WBC) 9.5 K/mm3 6.6-12.1 N RED BLOOD CELL (test code = RBC) 4.56 M/mm3 3.45-5.01 N HEMOGLOBIN (test code = HGB) 10.5 g/dL 10.7-13.9 L HEMATOCRIT (test code = HCT) 35.8 % 32.1-42.1 N MEAN CELL VOLUME (test code = MCV) 79 fL 84.1-94.8 L MEAN CELL HGB (test code = MCH) 23.0 pg 27-35 L MEAN CELL HGB CONCETRATION (test 29.3 gm/dL 32.2-34.1 L code = MCHC) RED CELL DISTRIBUTION WIDTH (test 15.9 % 12.4-16.5 N code = RDW) PLATELET COUNT (test code = PLT) 301 K/mm3 133-385 N IMMATURE PLATELET FRACTION (test 0.0 % 0.0-10.8 N code = IPF) MEAN PLATELET VOLUME (test code = 10.0 fl 9.1-12.7 N MPV) NEUTROPHIL % (test code = NT%) 68.5 % 56.5-79.4 N LYMPHOCYTE % (test code = LY%) 25.7 % 14.3-34.3 N MONOCYTE % (test code = MO%) 4.6 % 5.1-10.4 L EOSINOPHIL % (test code = EO%) 0.7 % 0.1-3.0 N BASOPHIL % (test code = BA%) 0.3 % 0.1-1.0 N NEUTROPHIL # (test code = NT#) 6.5 K/mm3 LYMPHOCYTE # (test code = LY#) 2.4 K/mm3 MONOCYTE # (test code = MO#) 0.4 K/mm3 EOSINOPHIL # (test code = EO#) 0.07 K/mm3 BASOPHIL # (test code = BA#) 0.0 K/mm3 RBC MORPHOLOGY REQUIRED (test code NORMAL NORMAL = RBCM) PLATELET MORPHOLOGY REQUIRED (test NORMAL NORMAL code = PLTMR)
[2020-07-12 16:13] LABS: Urine Blood 1+ (Negative); Urine Glucose Negative (Negative); Urine Protein Negative (Negative); Urine Specific Gravity >=1.030 (1.005-1.030)
[2020-07-12 16:29] LABS: Absolute Lymphocytes (CBC) 2.3 K/uL (0.7-4.9); Basophils % 0.4 % (0-1.3); Lymphocytes % 16.4 % (15.3-44.8); MPV 7.6 fL (7.6-11.3); RBC Red Blood Cell Count 4.83 M/uL (3.86-4.86)
[2020-07-12 16:31] LABS: Protime INR 1.06
[2020-07-12] MEDS ORDERED: LIDOCAINE VISCOUS 2% SOLN 15 ML UDC ONE (16:47)
[2020-07-12] MEDS ORDERED: MAGNES/ALUMIN/SIMET 30ML UCUP ONE (16:47)
[2020-07-12 16:55] LABS: ALT/SGPT 24 U/L (12-78); AST/SGOT 11 U/L (15-37); Albumin 3.6 g/dL (3.4-5.0); Alkaline Phosphatase 78 U/L (45-117); BUN Blood Urea Nitrogen 11 mg/dL (7-18); Bicarbonate 26 mmol/L (21-32); Bilirubin Direct < 0.1 mg/dL (0-0.2); Bilirubin Total 0.3 mg/dL (0.2-1.0); Glucose Level 129 mg/dL (74-106); NT PRO-BNP 63 pg/mL (<125); Potassium 4.1 mmol/L (3.5-5.1); Protein, Total 7.9 g/dL (6.4-8.2); Sodium Level 138 mmol/L (136-145); Troponin (Emerg Dept Use Only) < 0.02 ng/mL (0.0-0.045)
--- NOTE | 2020-07-12 17:08 | RAD REPORT ---
EXAM DESCRIPTION: US - Abdomen Exam Limited - 07/12/2020 4:52 pm CLINICAL HISTORY: r/o GB;Abd pain Abdominal pain COMPARISON: Abdomen Exam Limited dated 06/17/2018 FINDINGS: The gallbladder demonstrates numerous shadowing gallstones. Slight gallbladder wall thicke dudley measuring 5 mm. The common bile duct is normal measuring 4 mm. The liver demonstrates no findings of intrahepatic biliary dilatation. IMPRESSION: Cholelithiasis is seen. Slight gallbladder wall thickening measure up to 5 mm is noted which can be seen in early acute cholecystitis.
--- NOTE | 2020-07-12 17:10 | RAD REPORT ---
EXAM DESCRIPTION: RAD - Chest Single View - 07/12/2020 5:01 pm CLINICAL HISTORY: CHEST PAIN Chest pain. COMPARISON: <Comparisons> FINDINGS: Portable technique limits examination quality. The lungs are grossly clear. The heart is normal in size. No displaced fractures. IMPRESSION: No acute intrathoracic process suspected.
[2020-07-12 17:14] LABS: Urine Specific Gravity/Preg >1.030 (1.005-1.030)
[2020-07-12] MEDS ORDERED: MEPERIDINE HCL 25 MG/ML SYR ONE (18:02)
[2020-07-12] MEDS ORDERED: PIPER/TAZO/NS 3.375gm 3.375 GM/100 ML BAG ONE (18:02)
[2020-07-12] MEDS ORDERED: PANTOPRAZOLE 40 MG INJ ONE (18:15)
[2020-07-12] MEDS ORDERED: SIMETHICONE 80 MG TAB ONE (18:15)
--- NOTE | 2020-07-12 18:47 | EDPHYS ---
Physician Documentation [facility] Name: Toribio Espino Age: 39 yrs Sex: Female : 1980 Arrival Date: 07/12/2020 Time: 11:43 Bed 30 Private MD: ED Physician Joel Ward HPI: 07/12 18:39 This 39 yrs old Female presents to ER via Ambulatory with complaints of Chest jr8 Pain. 18:39 Patient stated that she started with right sided lower chest pain, nausea, right jr8 shoulder and scapular pain, and uncontrolled belching. Denies having problems like this in the past . Onset: The symptoms/episode began/occurred acutely, today. Severity of symptoms: At their worst the symptoms were moderate in the emergency department the symptoms are unchanged. The patient has not experienced similar symptoms in the past. The patient has not recently seen a physician. 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 - Social history:: Smoking status: Patient denies any tobacco usage or history of. ROS: 18:39 Eyes: Negative for injury, pain, redness, and discharge, ENT: Negative for injury, jr8 pain, and discharge, Neck: Negative for injury, pain, and swelling, Respiratory: Negative for shortness of breath, cough, wheezing, and pleuritic chest pain, MS/Extremity: Negative for injury and deformity, Skin: Negative for injury, rash, and discoloration, Neuro: Negative for headache, weakness, numbness, tingling, and seizure. 18:39 Cardiovascular: Positive for chest pain, Negative for edema, orthopnea, palpitations, paroxysmal nocturnal dyspnea. 18:39 Abdomen/GI: Positive for nausea, diarrhea. 18:39 Back: Positive for pain at rest, of the right scapular area. Exam: 18:39 Cardiovascular: Regular rate and rhythm with a normal S1 and S2. No gallops, murmurs, jr8 or rubs. Normal PMI, no JVD. No pulse deficits. Respiratory: Lungs have equal breath sounds bilaterally, clear to auscultation and percussion. No rales, rhonchi or wheezes noted. No increased work of breathing, no retractions or nasal flaring. Back: No spinal tenderness. No costovertebral tenderness. Full range of motion. Skin: Warm, dry with normal turgor. Normal color with no rashes, no lesions, and no evidence of cellulitis. MS/ Extremity: Pulses equal, no cyanosis. Neurovascular intact. Full, normal range of motion. Neuro: Awake and alert, GCS 15, oriented to person, place, time, and situation. Cranial nerves II-XII grossly intact. Motor strength 5/5 in all extremities. Sensory grossly intact. Cerebellar exam normal. Normal gait. 18:39 Abdomen/GI: Inspection: obese Bowel sounds: active, all quadrants, Palpation: soft, in all quadrants, moderate abdominal tenderness, in the epigastric area and right upper quadrant, mass, is not appreciated, rebound tenderness, is not appreciated, involuntary guarding, is not appreciated, no appreciated organomegaly, Indicators: McBurney's point is not tender, Salinas's sign is positive, Liver: no appreciated palpable abnormalities. Vital Signs: 12:21 BP 145 / 74; Pulse 83; Resp 22; Temp 98.4(T); Pulse Ox 99% on R/A; Weight 138.35 kg; kl Height 5 ft. 4 in. (162.56 cm); Pain 7/10; 16:20 BP 143 / 66; Pulse 77; Resp 18; Temp 98.4(O); Pulse Ox 100% on R/A; Weight 138.35 kg; ld1 Height 5 ft. 4 in. (162.56 cm); Pain 7/10; 17:34 BP 143 / 66; Pulse 73; Resp 18; Pulse Ox 100% on R/A; ld1 19:35 BP 131 / 75; Pulse 79; Resp 17; Pulse Ox 98% ; Pain 4/10; rr5 20:30 BP 132 / 70; Pulse 89; Resp 15; Pulse Ox 98% ; rr5 21:19 BP 143 / 79; Pulse 83; Resp 17; Pulse Ox 99% ; rr5 16:20 Body Mass Index 52.35 (138.35 kg, 162.56 cm) ld1 MDM: 15:49 Patient medically screened. jr8 18:39 Data reviewed: vital signs, nurses notes, lab test result(s), EKG, radiologic studies, jr8 ultrasound. Data interpreted: Pulse oximetry: on room air is 100 %. Interpretation: normal. Counseling: I had a detailed discussion with the patient and/or guardian regarding: the historical points, exam findings, and any diagnostic results supporting the discharge/admit diagnosis, lab results, radiology results, the need for further work-up and treatment in the hospital. ED course: Dr. Contreras consulted and will see patient . 07/12 16:07 Order name: Basic Metabolic Panel bp 07/12 16:07 Order name: CBC with Diff bp 07/12 16:07 Order name: LFT's bp 07/12 16:07 Order name: Magnesium bp 07/12 16:07 Order name: NT PRO-BNP; Complete Time: 17:41 bp 07/12 16:07 Order name: PT-INR; Complete Time: 17:41 bp 07/12 16:07 Order name: Troponin (emerg Dept Use Only); Complete Time: 17:41 bp 07/12 16:07 Order name: Basic Metabolic Panel; Complete Time: 17:41 EDMS 07/12 16:07 Order name: CBC with Automated Diff EDMS 07/12 16:07 Order name: Liver (Hepatic) Function; Complete Time: 17:41 EDMS 07/12 16:07 Order name: Magnesium; Complete Time: 17:41 EDMS 08 16:12 Order name: Urine Dipstick-Ancillary; Complete Time: 16:16 EDMS 08 16:17 Order name: Urine --Ancillary (enter results); Complete Time: 17:41 em1 07/12 16:29 Order name: Lipase; Complete Time: 17:41 jr8 07/12 16:07 Order name: XRAY Chest (1 view); Complete Time: 17:41 bp 07/12 16:07 Order name: EKG; Complete Time: 16:07 bp 07/12 16:07 Order name: Cardiac monitoring; Complete Time: 16:08 bp 07/12 16:07 Order name: EKG - Nurse/Tech; Complete Time: 16:07 bp 07/12 16:21 Order name: US Abdomen Limited; Complete Time: 17:41 jr8 07/12 19:14 Order name: COVID-19 : Document "Date of Symptom Onset" if Symptomatic. rr5 07/12 20:05 Order name: CORONAVIRUS EDMS 07/12 20:51 Order name: SARS-COV-2 RT PCR; Complete Time: 21:22 EDMS 07/12 21:56 Order name: CBC Smear Scan EDMS 07/12 16:07 Order name: IV Saline Lock; Complete Time: 16:07 bp 07/12 16:07 Order name: Labs collected and sent; Complete Time: 16:15 bp 07/12 16:07 Order name: O2 Per Protocol; Complete Time: 16:08 bp 07/12 16:07 Order name: O2 Sat Monitoring; Complete Time: 16:08 bp 07/12 16:07 Order name: Urine Dipstick-Ancillary (obtain specimen); Complete Time: 16:08 bp 07/12 16:07 Order name: Urine Test (obtain specimen); Complete Time: 16:08 bp Administered Medications: 16:33 Drug: GI Cocktail without - (Maalox Suspension 30 ml, Lidocaine Liquid 2 % 15 ld1 ml) Route: PO; 17:00 Follow up: Response: No adverse reaction ld1 17:45 Drug: Demerol 25 mg Route: IVP; Site: right forearm; ld1 18:00 Follow up: Response: No adverse reaction ld1 17:45 Drug: Zosyn 3.375 grams Route: IVPB; Infused Over: 60 mins; Site: right forearm; ld1 18:28 Follow up: Response: No adverse reaction ld1 17:52 Drug: ProTONIX 40 mg Route: IVP; Site: right forearm; ld1 18:00 Follow up: Response: No adverse reaction ld1 17:52 Drug: Simethicone 240 mg Route: PO; ld1 18:27 Follow up: Response: No adverse reaction ld1 19:05 Drug: Demerol 50 mg Route: IVP; Site: right forearm; ld1 19:06 Drug: Phenergan 12.5 mg Route: IVP; Site: right forearm; ld1 Disposition: 07/12/20 18:46 Hospitalization ordered by Xavier Hilton for Inpatient Admission. Preliminary diagnosis is Acute cholecystitis. - Bed requested for Telemetry/MedSurg (Inpatient). - Status is Inpatient Admission. ea - Condition is Stable. - Problem is new. - Symptoms have improved. Addendum: 07/14/2020 07:15 Co-signature as Attending Physician, Joel Ward MD I agree with the assessment and k dr plan of care. Signatures: Dispatcher [employer] EDMarycarmen Victoria, RN Joel Miranda MD MD [facility] Angel Wade PA PA jr8 Mary Noonan, RN RN tl1 Ernestina Bailey RN RN ea Billy Clayton RN JANI bp Brunilda Gomez RN RN ld1 Corrections: (The following items were deleted from the chart) 07/12 21:53 18:46 [facility]. Preliminary tl1 diagnosis is Acute cholecystitis. Bed requested for Telemetry/MedSurg (Inpatient). Status is Inpatient Admission. Condition is Stable. Problem is new. Symptoms have improved. jr8 22:19 21:53 07/12/2020 18:46 Hospitalization Ordered by Xavier Hilton for Inpatient ea Admission. Preliminary diagnosis is Acute cholecystitis. Bed requested for Telemetry/MedSurg (Inpatient). Status is Inpatient Admission. Condition is Stable. Problem is new. Symptoms have improved. tl1
--- NOTE | 2020-07-12 18:47 | ER ---
Nurse's Notes [facility] Name: Toribio Espino Age: 39 yrs Sex: Female : 1980 Arrival Date: 07/12/2020 Time: 11:43 Bed 30 Private MD: Diagnosis: Acute cholecystitis Presentation: 07/12 12:21 Chief complaint: Patient states: chest pain/ tightness radiating to right shoulder and kl back since 4am woke up out of sleep reports no change in pain level with activity. Coronavirus screen: Client denies travel out of the [place] in the last 14 days. At this time, the client does not indicate any symptoms associated with coronavirus-19. pt vaccinated for covid. Ebola Screen: Patient negative for fever greater than or equal to 101.5 degrees Fahrenheit, and additional compatible Ebola Virus Disease symptoms. Initial Sepsis Screen: Does the patient meet any 2 criteria? No. Patient's initial sepsis screen is negative. Does the patient have a suspected source of infection?. Risk Assessment: Do you want to hurt yourself or someone else? Patient reports no desire to harm self or others. Onset of symptoms was July 12, 2020 at 04:00. 12:21 Method Of Arrival: Ambulatory kl 12:21 Acuity: WARD 2 kl Triage Assessment: 12:27 General: Appears uncomfortable, obese, Behavior is cooperative, anxious. Pain: kl Complains of pain in chest Pain radiates to right shoulder Pain currently is 7 out of 10 on a pain scale. Cardiovascular: Reports chest pain, nausea, shortness of breath. 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 - Social history:: Smoking status: Patient denies any tobacco usage or history of. Screenin:20 Abuse screen: Denies threats or abuse. Denies injuries from another. Nutritional ld1 screening: No deficits noted. Tuberculosis screening: No symptoms or risk factors identified. Fall Risk Total Edgar Fall Scale indicates No Risk (0-24 pts). Assessment: 16:15 Reassessment: ERP at bedside discussing POC. ld1 16:20 General: Appears in no apparent distress. comfortable, Behavior is calm, cooperative, ld1 appropriate for age. Pain: Complains of pain in right clavicle, anterior aspect of right upper chest, mid-sternal area and right breast Patient states the pain radiates to her right posterior shoulder Pain currently is 7 out of 10 on a pain scale. Quality of pain is described as pressure, sharp, stabbing. Neuro: Level of Consciousness is awake, alert, obeys commands, Oriented to person, place, time, situation. Cardiovascular: Capillary refill < 3 seconds Patient's skin is warm and dry. Respiratory: Airway is patent Respiratory effort is even, unlabored, Respiratory pattern is regular, symmetrical. GI: Abdomen is round obese, Bowel sounds present X 4 quads. : No deficits noted. No signs and/or symptoms were reported regarding the genitourinary system. EENT: No deficits noted. No signs and/or symptoms were reported regarding the EENT system. Derm: No deficits noted. No signs and/or symptoms reported regarding the dermatologic system. 17:34 Reassessment: Patient and/or family updated on plan of care and expected duration. Pain ld1 level reassessed. Patient is alert, oriented x 3, equal unlabored respirations, skin warm/dry/pink. 18:29 Reassessment: Patient and/or family updated on plan of care and expected duration. Pain ld1 level reassessed. Patient is alert, oriented x 3, equal unlabored respirations, skin warm/dry/pink. Pain: Complains of pain in diaphragm Pain radiates to right scapular area Pain currently is 7 out of 10 on a pain scale. Quality of pain is described as pressure, throbbing, Pain began 1 day ago. 19:34 Reassessment: Patient states symptoms have improved. General: Appears in no apparent rr5 distress. comfortable, Behavior is calm, cooperative, appropriate for age. Pain: Complains of pain in chest Pain radiates to abdomen and right upper quadrant and epigastric area and back and right scapular area and diaphragm Pain currently is 4 out of 10 on a pain scale. Quality of pain is described as aching, Pain began gradually. Neuro: Level of Consciousness is awake, alert, obeys commands, Oriented to person, place, time. Cardiovascular: Capillary refill < 3 seconds Patient's skin is warm and dry. Respiratory: Airway is patent Respiratory effort is even, unlabored, Respiratory pattern is regular, symmetrical. GI: Abdomen is round non-distended, obese, Reports upper abdominal pain. : No signs and/or symptoms were reported regarding the genitourinary system. Derm: Skin temperature is warm. Musculoskeletal: Capillary refill < 3 seconds. 20:30 Reassessment: Patient appears in no apparent distress at this time. Patient and/or rr5 family updated on plan of care and expected duration. Pain level reassessed. Patient is alert, oriented x 3, equal unlabored respirations, skin warm/dry/pink. for admission awaiting for orders. 21:10 Reassessment: Patient appears in no apparent distress at this time. Patient is alert, rr5 oriented x 3, equal unlabored respirations, skin warm/dry/pink. hospitalist at bedside. 22:17 Reassessment: Patient and/or family updated on plan of care and expected duration. Pain ea level reassessed. Patient is alert, oriented x 3, equal unlabored respirations, skin warm/dry/pink. Pt admitted to fourth floor. Pt left ED via wheelchair per tech .tolerating well. Vital Signs: 12:21 BP 145 / 74; Pulse 83; Resp 22; Temp 98.4(T); Pulse Ox 99% on R/A; Weight 138.35 kg; kl Height 5 ft. 4 in. (162.56 cm); Pain 7/10; 16:20 BP 143 / 66; Pulse 77; Resp 18; Temp 98.4(O); Pulse Ox 100% on R/A; Weight 138.35 kg; ld1 Height 5 ft. 4 in. (162.56 cm); Pain 7/10; 17:34 BP 143 / 66; Pulse 73; Resp 18; Pulse Ox 100% on R/A; ld1 19:35 BP 131 / 75; Pulse 79; Resp 17; Pulse Ox 98% ; Pain 4/10; rr5 20:30 BP 132 / 70; Pulse 89; Resp 15; Pulse Ox 98% ; rr5 21:19 BP 143 / 79; Pulse 83; Resp 17; Pulse Ox 99% ; rr5 16:20 Body Mass Index 52.35 (138.35 kg, 162.56 cm) ld1 ED Course: 11:43 Patient arrived in ED. am2 12:25 Triage completed. kl 15:47 Brunilda Gomez, RN is Primary Nurse. ld1 15:48 Angel Wade PA is PHCP. jr8 15:49 Joel Ward MD is Attending Physician. jr8 16:20 Patient has correct armband on for positive identification. Bed in low position. Call ld1 light in reach. Side rails up X 1. teletypesetter monitor on. Pulse ox on. NIBP on. Door closed. Noise minimized. Warm blanket given. 16:20 No provider procedures requiring assistance completed. Inserted saline lock: 20 gauge ld1 in right forearm, using aseptic technique. Patient maintains SpO2 saturation greater than 95% on room air. 16:52 US Abdomen Limited In Process Unspecified. EDMS 17:01 XRAY Chest (1 view) In Process Unspecified. EDMS 18:46 Xavier Hilton is Hospitalizing Provider. jr8 19:36 COVID swab sent to lab. rr5 22:17 Patient admitted, IV remains in place. ea Administered Medications: 16:33 Drug: GI Cocktail without - (Maalox Suspension 30 ml, Lidocaine Liquid 2 % 15 ld1 ml) Route: PO; 17:00 Follow up: Response: No adverse reaction ld1 17:45 Drug: Demerol 25 mg Route: IVP; Site: right forearm; ld1 18:00 Follow up: Response: No adverse reaction ld1 17:45 Drug: Zosyn 3.375 grams Route: IVPB; Infused Over: 60 mins; Site: right forearm; ld1 18:28 Follow up: Response: No adverse reaction ld1 17:52 Drug: ProTONIX 40 mg Route: IVP; Site: right forearm; ld1 18:00 Follow up: Response: No adverse reaction ld1 17:52 Drug: Simethicone 240 mg Route: PO; ld1 18:27 Follow up: Response: No adverse reaction ld1 19:05 Drug: Demerol 50 mg Route: IVP; Site: right forearm; ld1 19:06 Drug: Phenergan 12.5 mg Route: IVP; Site: right forearm; ld1 Outcome: 18:46 Decision to Hospitalize by Provider. jr8 22:17 Admitted to Med/surg accompanied by tech, via wheelchair, with chart, Report called to ea Receiving nurse on fourth floor 22:17 Condition: stable 22:17 Instructed on the need for admit, Demonstrated understanding of instructions. 22:19 Patient left the ED. ea Signatures: Dispatcher [employer] EDMarycarmen Victoria, RN Angel Valentine PA PA jr8 Lenora Fine am2 Ernestina Bailey RN RN ea Roque, Raymond RN RN rr5 Brunilda Gomez RN RN ld1
[2020-07-12] MEDS ORDERED: MEPERIDINE HCL 50 MG/ML ONE (19:16)
[2020-07-12] MEDS ORDERED: PROMETHAZINE INJ 25 MG/ML AMP ONE (19:20)
[2020-07-12 21:55] LABS: Platelet Estimate ADEQ; White Blood Cell Scan OK (OK)
[2020-07-12 21:56] LABS: Anisocytosis 1+; Blood Morphology Comment NOTED (NOT SEEN); Hypochromasia 2+
[2020-07-12] MEDS ORDERED: MEPERIDINE HCL 50 MG/ML IV PRN (22:30)
[2020-07-12] MEDS ORDERED: ONDANSETRON 4 MG/2 ML VIAL IV PRN (22:30)
[2020-07-12] MEDS: NA CHLORIDE 0.9% 1,000 ML IV SCH (22:30)
[2020-07-12 23:02] VITALS: BMI 53.5
[2020-07-12] MEDS: PIPER/TAZO/NS 3.375gm 3.375 GM/100 ML BAG IVPB SCH (23:04)
[2020-07-12] MEDS ORDERED: PIPER/TAZO/NS 3.375gm 6.750 GM/200 ML BAG ONE (23:09)
[2020-07-12 23:30] LABS: Thyroid Stimulating Hormone 0.736 uIU/mL (0.360-3.740)
[2020-07-13 00:09] LABS: Urine Appearance CLEAR (Clear); Urine Bilirubin NEGATIVE (Negataive); Urine Blood NEGATIVE (Negative); Urine Color YELLOW (Yellow); Urine Glucose TRACE (Negative); Urine Protein NEGATIVE (Negative); Urine Urobilinogen 0.2 mg/dL (0.2-1.0)
[2020-07-13 00:30] LABS: Urine Microscopic Reflex ORDER UMIC
[2020-07-13 00:31] LABS: Urine Amorphous Sediment 1+ /HPF (NONE SEEN); Urine Bacteria 20-50 /HPF (<20); Urine Mucus 1+ /HPF (NONE SEEN); Urine RBC <5 /HPF (NONE SEEN)
--- NOTE | 2020-07-13 01:44 | P.HP ---
Certification for Inpatient Patient admitted to: Inpatient With expected LOS: >2 Midnights Patient will require the following post-hospital care: None Practitioner: I am a practitioner with admitting privileges, knowledge of patient current condition, hospital course, and medical plan of care. Services: Services provided to patient in accordance with Admission requirements found in Title 42 Section 412.3 of the Code of Federal Regulations <Kavon Segovia - Last Filed: 07/13/20 01:38> Patient History Date of Service: 07/12/20 Reason for admission: cholecystitis History of Present Illness: Ms. Espino is a 39 yo F with T2DM, HLD, NEFTALI, anemia, and h/o cervical cancer here today for 8/10 chest and shoulder pain beginning at 4am, waking her from her sleep. he pain has been constant but the severity waxes and wanes, currently a 4/10. She thought it was indigestion but she took Tums without relief. She says her abdominal pain did not begin until she got here. She reports anorexia, nausea, vomiting, diarrhea, and belching. Denies night sweats, chills. WBC 14. Hgb 9.4. Hct 31. MCV 64.3. Iron 16. Urine with trace leuks, 5-10 WBCs, and 20-50 bacteria. Abdominal ultrasound shows cholelithiasis with slight gallbladder wall thickening measuring up to 5 mm, seen in early acute cholecystitis. - Past Medical/Surgical History Has patient received pneumonia vaccine in the past: No Diabetic: Yes -: IDDM -: previous abscesses -: Dyslipidemia -: NEFTALI -: PORTIA -: cervical cancer -: Buttocks incision and debridement -: gastric sleeve -: cone biopsy Psychosocial/ Personal History: lives with spouse - Family History Father History Unknown: Yes -: Heart disease, Diabetes Notes: HDL-mother - Social History Smoking Status: Never smoker Alcohol use: Yes CD- Drugs: No Caffeine use: No Place of Residence: Home <Darlyn Segoviayvonne Baca - Last Filed: 07/13/20 01:38> Date of Service: 07/14/20 <gilmar rodriguez - Last Filed: 07/14/20 18:39> Allergies No Known Drug Allergies Allergy (Verified 07/12/20 23:00) Unknown Home Medications: Insulin Degludec [Tresiba] 66 unit SQ BEDTIME 07/12/20 Insulin Lispro [Humalog] 16 unit SQ ACHS 07/12/20 Amox/Clavulanate [Augmentin 875-125 Tab] 1 each PO BID #10 tab 07/13/20 Codeine/APAP [Tylenol W/Codeine #3 tab] 1 tab PO Q4H PRN #30 tab 07/13/20 Ondansetron [Zofran] 4 mg PO Q6H PRN #10 tab 07/13/20 Review of Systems General: Unremarkable Eyes: Unremarkable ENT: Unremarkable Respiratory: Unremarkable Cardiovascular: Unremarkable Gastrointestinal: Nausea, Vomiting, Abdominal Pain, Diarrhea, As per HPI Genitourinary: Unremarkable Musculoskeletal: Back Pain, As per HPI Integumentary: Unremarkable Neurological: Unremarkable Lymphatics: Unremarkable <Kavon Segovia - Last Filed: 07/13/20 01:38> Physical Examination - Vital Signs Temperature: 97.4 F Blood Pressure: 135/54 Pulse: 85 Respirations: 16 Pulse Ox (%): 97 - Physical Exam General: Alert, In no apparent distress, Oriented x3, Cooperative HEENT: Atraumatic, Normocephalic, PERRLA, Mucous membr. moist/pink, EOMI, Sclerae nonicteric Neck: Supple, 2+ carotid pulse no bruit, JVD not distended, No Thyromegaly, No LAD Respiratory: Clear to auscultation bilaterally, Normal air movement Cardiovascular: No edema, Normal pulses, Regular rate/rhythm, Normal S1 S2, No gallops, No rubs, No murmurs Capillary refill: <2 Seconds Gastrointestinal: Normal bowel sounds, Soft and benign, Non-distended, No as cites, No masses, No rebound, No guarding, Tenderness Musculoskeletal: No clubbing, No swelling, No contractures, No erythema, No tenderness, No warmth Integumentary: No rashes, No breakdown, No significant lesion, No tenderness/swelling, No erythema, No warmth, No cyanosis Neurological: Normal speech, Normal strength at 5/5 x4 extr, Normal tone, Sensation intact, Cranial nerves 3-12 intact, Normal affect Lymphatics: No axilla or inguinal lymphadenopathy - Studies Laboratory Data (last 24 hrs) 07/12/20 14:08: Lipase 99 07/12/20 14:08: PT 12.2, INR 1.06 07/12/20 14:08: WBC 14.00 H, Hgb 9.4 L, Hct 31.0 L, Plt Count 351 07/12/20 14:08: Sodium 138, Potassium 4.1, BUN 11, Creatinine 0.72, Glucose 129 H, Magnesium 2.0, Total Bilirubin 0.3, AST 11 L, ALT 24, Alkaline Phosphatase 78 <Kavon Segovia - Last Filed: 07/13/20 01:38> Assessment and Plan - Problems (Diagnosis) (1) Cholecystitis Status: Acute (2) UTI (urinary tract infection) Status: Acute Qualifiers: Urinary tract infection type: site unspecified Hematuria presence: without hematuria Qualified Code(s): N39.0 - Urinary tract infection, site not specified (3) Type 2 diabetes mellitus Status: Chronic Qualifiers: Diabetes mellitus halfway insulin use: with halfway use Diabetes mellitus complication status: without complication Qualified Code(s): E11.9 - Type 2 diabetes mellitus without complications; Z79.4 - snf (current) use of insulin (4) Hyperlipidemia Status: Chronic Qualifiers: Hyperlipidemia type: unspecified Qualified Code(s): E78.5 - Hyperlipidemia, unspecified (5) NEFTALI (obstructive sleep apnea) Status: Chronic (6) Iron deficiency anemia Status: Chronic Qualifiers: Iron deficiency anemia type: unspecified iron deficiency Qualified Code(s): D50.9 - Iron deficiency anemia, unspecified - Plan Ben consulted for surgery, currently NPO, receiving IVF, Zosyn q6hr Demerol for pain management sliding scale insulin to start with meals and BG checks q6hr Patient using home CPAP machine Patient will need iron supplementation at discharge Urine culture pending Discharge Plan: Home Plan to discharge in: 48 Hours - Advance Directives Does patient have a Living Will: No Does patient have a Durable POA for Healthcare: No - Code Status/Comfort Care Code Status Assessed: Yes (full code) Critical Care: No Time Spent Managing Pts Care (In Minutes): 70 <Kavon Segovia - Last Filed: 07/13/20 01:38> Physician Review: Patient Assessed, Agree with Above Assessment and Plan Physician Review Additional Text: Acute cholecystitis Plan; Consult to surgery. Supportive measures. IV zosyn <gilmar rodriguez - Last Filed: 07/14/20 18:39>
[2020-07-13] MEDS: PIPER/TAZO/NS 3.375gm 3.375 GM/100 ML BAG IVPB SCH (05:09)
[2020-07-13 06:23] LABS: Absolute Lymphocytes (CBC) 2.6 K/uL (0.7-4.9); Basophils % 0.5 % (0-1.3); Hematocrit 28.1 % (36.0-45.0); Lymphocytes % 23.3 % (15.3-44.8); MPV 7.7 fL (7.6-11.3); RBC Red Blood Cell Count 4.34 M/uL (3.86-4.86)
[2020-07-13 06:36] LABS: Albumin 3.1 g/dL (3.4-5.0); Bilirubin Total 0.4 mg/dL (0.2-1.0); Potassium 3.9 mmol/L (3.5-5.1)
[2020-07-13] MEDS ORDERED: LIDOCAINE 1% MPF 5 ML VIAL ONE (07:30)
[2020-07-13] MEDS ORDERED: propofoL 200 MG/20 ML VIAL IV ONE ×2 (07:30→08:12)
[2020-07-13] MEDS ORDERED: ROCURONIUM 50 MG/5 ML VIAL IV ONE (07:30)
[2020-07-13] MEDS: INSULIN -REGULAR HUMAN 50 UNIT/0.5 ML ML SQ SCH ×3 (07:30→17:00)
[2020-07-13] MEDS ORDERED: FENTANYL CITR 100 MCG/2 ML ONE ×2 (07:30→08:30)
[2020-07-13] MEDS ORDERED: MIDAZOLAM HCL 2 MG/2 ML INJ ONE (07:30)
[2020-07-13] MEDS ORDERED: NA CHLORIDE 0.9% 1,000 ML ONE (07:39)
[2020-07-13] MEDS ORDERED: SUCCINYLCHOLINE 20 MG/ML (10 ML) IV ONE (07:41)
[2020-07-13] MEDS ORDERED: KCL 20 MEQ/100 mL IVPB 20 MEQ/100 ML BAG IV SCH (08:00)
[2020-07-13] MEDS: NA CHLORIDE 0.9% 1,000 ML IV SCH (08:30)
[2020-07-13] MEDS ORDERED: KETOROLAC 30 MG/ML INJ ONE (08:33)
[2020-07-13] MEDS ORDERED: dexAMETHasone 10 MG/ML VIAL ONE (08:33)
[2020-07-13] MEDS ORDERED: ONDANSETRON 4 MG/2 ML VIAL ONE (08:43)
[2020-07-13] MEDS ORDERED: GLYCOPYRROLATE 0.2 MG/ML SYR ONE (08:46)
--- NOTE | 2020-07-13 08:48 | P.BOP ---
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
[2020-07-13] MEDS ORDERED: NEOSTIGMINE 1 MG/ML -5 ML ONE (08:59)
[2020-07-13] MEDS ORDERED: PROMETHAZINE INJ 25 MG/ML AMP ONE (09:23)
[2020-07-13] MEDS: HYDROMORPHONE HCL 1 MG/ML INJ ONE ×2 (09:25→09:30)
[2020-07-13] MEDS ORDERED: MORPHINE 2 MG/ML SYR IV PRN (09:41)
[2020-07-13] MEDS ORDERED: PIPER/TAZO/NS 3.375gm 3.375 GM/100 ML BAG IVPB SCH (11:00)
--- NOTE | 2020-07-13 11:47 | CON ---
Date of Consultation: 07/13/2020 Reason For Service: Acute cholecystitis, symptomatic cholelithiasis. History Of Present Illness: This is a case of a 39-year-old patient who comes to us with epigastric right upper quadrant pain radiating to the back associated with nausea, vomiting for the last few wee ks, but last night got worse to the point that she came to the ER and the pain did not subside, so th is morning, she was admitted to the hospital and explained the possible need for cholecystectomy, so a surgical consult was obtained. She has history of gastric sleeve in 2014. She has history of cerv ical cancer with LEEP surgery done for that. She denies any dysuria, hematuria, hematochezia, melena . Denies any recent traveling out of the country. Denies any family members sick at home. Past Medical History: Morbid obesity, insulin dependent diabetes, cervical cancer. Past Surgical History: Cone biopsy, incision and drainage of buttock abscess, gastric sleeve. Social History: She does not smoke. She drinks alcohol occasionally. Family History: Noncontributory. Review of Systems: Ten points otherwise unremarkable. Physical Examination: General: The patient is awake, alert. HEENT: Pupils are equal and reactive, anicteric. Neck: Supple. Chest: Clear. Heart: S1, S2. Abdomen: Epigastric right upper quadrant pain. [place] sign positive. Rest of the abdomen is soft a nd depressible. Genitalia: Deferred. Breasts: Deferred. Rectal: Deferred. Extremities: Good capillary refill. Laboratory Data: Blood work shows WBC count was 11, coming down from 14; hemoglobin of 8.7; and plat elets of 318. Chloride is 109. Total bili of 0.4. Abdominal ultrasound interpreted by Dr. Lee as cholelithiasis seen, gallbladder wall thickening consistent with acute cholecystitis, cholelithiasis. Assessment: This is a 39-year-old patient with acute cholecystitis, symptomatic cholelithiasis. The benefits, alternatives, and risks of laparoscopic, possible open cholecystectomy were fully explaine d which include, but not limited to infection, bleeding, damage to adjacent structures, anesthesia co mplication, choledocholithiasis, bile leak, pancreatitis, [place], and even . She also understands t his may not relieve symptoms. She might need more than one surgical intervention. She understood an d she wants to have the surgery done during this admission. The patient was booked in OR. VENKAT/JUAN Voice ID: [id number] Report ID: [id number]
--- NOTE | 2020-07-13 12:08 | OP ---
Date of Procedure: 07/13/2020 Surgeon: Keith Contreras MD Preoperative Diagnoses: Acute cholecystitis; symptomatic cholelithiasis; morbid obesity history of g astric stapling; cervical cancer; diabetes, insulin-dependent. Postoperative Diagnoses: Acute cholecystitis; symptomatic cholelithiasis; morbid obesity history of gastric stapling; cervical cancer; diabetes, insulin-dependent. Procedure Performed: Laparoscopic cholecystectomy. Anesthesia: General plus local. Indications For Procedure: This is the case of a 39-year-old patient with above diagnoses. Fully ex plained the benefits, alternatives, and risks of laparoscopic, possible open cholecystectomy, which i nclude, but not limited to infection, bleeding, damage to adjacent structures, anesthesia complicatio n, choledocholithiasis, bile leak, pancreatitis, [place], and . She also understands this may not re lieve the symptoms. She might need more than one surgical intervention. She understood, signed a co nsent. Description Of Procedure: The patient was brought to the operating room, placed in supine position. Anesthesia was done without complication. Abdominal area was prepped and draped in the usual steril e fashion. Marcaine 0.5% was injected for local anesthetic followed by sharp incision of the skin in the infraumbilical region. Incision was carried down to fascia, which was opened under direct visio n. Peritoneum was encountered, opened under direct vision. Vicryl #1 was placed inside the fascia. Lewis trocar was carefully introduced. No bleeding was obtained. I placed 3 more trocars 5 mm eac h one of them, 1 in epigastric area, 2 in the right upper quadrant using same technique under direct visualization. This allowed me to visualize the area of the gallbladder which showed a distended thi ckened gallbladder. We put an Endo needle under direct visualization, deflated the gallbladder parti ally. Needle was removed under direct visualization. A grasper was placed and the fundus of the gal lbladder was retracted in the inferolateral fashion exposing the triangle of Calot. Another grasper placed was in the infundibulum and the other 1 in the fundus of the gallbladder, retracted in the inf erolateral fashion exposing the triangle of Calot obtaining critical view. The cystic duct and cysti c artery were clearly isolated, freed circumferentially and a connection between those and the gallbl adder was clearly identified. I proceeded to ligate those by using at least 3 clips proximal, 1 clip distal, ligation in the middle. Same was done with the cystic artery, then ligation was done. No b ile leak, no bleeding. The gallbladder was removed from liver using Bovie cauterizer and removed fro m abdominal cavity using EndoCatch through the umbilical incision. The area was inspected once again . No bile leak. No bleeding. Clips were intact. At that moment, I proceeded to remove the trocars under direct vision, deflated pneumoperitoneum, closed the fascia with 1 Vicryl, irrigated subcutane ous tissue, closed that with 3-0 chromic and skin with suhail. Sponge count, instrument counts were correct. The patient tolerated the procedure well. The patient was sent to recovery in stable cond ition. If she goes home today and it is okay with the primary doctor, she can be discharged today. Plan: Follow up in my office in 1 week. Call for appointment [phone]. Keep area dry for 48 hours, then may shower. No heavy lifting. Medications: Include Augmentin 875 p.o. q.12, Tylenol No.3 q.4 hours p.r.n. and Zofran 4 q.6 p.r.n. nausea. Once again this discharge pending that the patient is cleared by the medical standpoint to go home si nce she has some other comorbidities. VENKAT/JUAN Voice ID: [id number] Report ID: [id number]
--- NOTE | 2020-07-13 12:48 | EKG ---
Test Date: 2020-07-12 Test Time: 12:28:46 Medical Assistant Supervisor: TORIBIO MEASUREMENT RESULTS: Intervals: Rate: 81 HI: 146 QRSD: 78 QT: 388 QTc: 450 [place]: P: 48 HI: 146 QRS: 42 T: 53 INTERPRETIVE STATEMENTS: Normal sinus rhythm Normal ECG Compared to ECG 06/17/2018 22:39:26 No significant changes Electronically Signed On 07-13-20 12:45:41 CDT by Wilian Murry
--- NOTE | 2020-07-13 15:17 | P.DS ---
Admission Date: 07/12/20 Discharge Date: 07/13/20 Disposition: ROUTINE DISCHARGE Discharge Condition: GOOD Reason for Admission: cholecystitis - Problems (1) Acute cholecystitis Status: Acute (2) UTI (urinary tract infection) Status: Acute Qualifiers: Urinary tract infection type: site unspecified Hematuria presence: without hematuria Qualified Code(s): N39.0 - Urinary tract infection, site not specified (3) Iron deficiency anemia Status: Chronic Qualifiers: Iron deficiency anemia type: unspecified iron deficiency Qualified Code(s): D50.9 - Iron deficiency anemia, unspecified Brief History of Present Illness: 39 yo woman with a history of type 2 diabetes, HLD, NEFTALI, anemia, and h/o cervical cancer presented to the emergency department with a complaint of sudden onset chest and shoulder pain that woke her up from sleep, last night.She thought it was indigestion but she took Tums without relief. She she was also complaining of abdominal pain when she got to the ER. She reported anorexia, nausea, vomiting, diarrhea, and belching. WBC 14. Hgb 9.4. Hct 31. MCV 64.3. Iron 16. Urine with trace leuks, 5-10 WBCs, and 20-50 bacteria. Abdominal u ltrasound showed cholelithiasis with slight gallbladder wall thickening measuring up to 5 mm, seen in early acute cholecystitis. General surgery-Dr. Contreras was contacted and patient was hospitalized for further management. Hospital Course: Patient was seen by Dr. Contreras will performed lap cholecystectomy which was uneventful. Patient was monitored briefly postop with no event. Patient deemed stable for discharge per Dr. Contreras. Patient is prescribed Augmentin continue treatment for UTI and possible biliary tree infection. Vital Signs/Physical Exam: Temp Pulse Resp BP Pulse Ox 97.8 F 70 18 147/78 H 95 07/13/20 12:00 07/13/20 12:00 07/13/20 12:00 07/13/20 12:00 07/13/20 12:00 General: Alert, In no apparent distress Respiratory: Clear to auscultation bilaterally, Normal air movement Cardiovascular: No edema, Regular rate/rhythm, Normal S1 S2 Gastrointestinal: Non-distended Musculoskeletal: No swelling Integumentary: No rashes Laboratory Data at Discharge: WBC 11.10 K/uL (4.3-10.9) H D 07/13/20 05:43 Hgb 8.7 g/dL (12.0-15.0) L 07/13/20 05:43 Hct 28.1 % (36.0-45.0) L 07/13/20 05:43 Plt Count 318 K/uL (152-406) 07/13/20 05:43 PT 12.2 SECONDS (9.5-12.5) 07/12/20 14:08 INR 1.06 07/12/20 14:08 Sodium 140 mmol/L (136-145) 07/13/20 05:43 Potassium 3.9 mmol/L (3.5-5.1) 07/13/20 05:43 BUN 13 mg/dL (7-18) 07/13/20 05:43 Creatinine 0.74 mg/dL (0.55-1.3) 07/13/20 05:43 Glucose 132 mg/dL (74-106) H 07/13/20 05:43 Magnesium 2.0 mg/dL (1.8-2.4) 07/12/20 14:08 Total Bilirubin 0.4 mg/dL (0.2-1.0) 07/13/20 05:43 AST 11 U/L (15-37) L 07/13/20 05:43 ALT 22 U/L (12-78) 07/13/20 05:43 Alkaline Phosphatase 72 U/L (45-117) 07/13/20 05:43 Lipase 99 U/L (73-393) 07/12/20 14:08 Home Medications: Insulin Degludec [Tresiba] 66 unit SQ BEDTIME 07/12/20 Insulin Lispro [Humalog] 16 unit SQ ACHS 07/12/20 Amox/Clavulanate [Augmentin 875-125 Tab] 1 each PO BID #10 tab 07/13/20 Codeine/APAP [Tylenol W/Codeine #3 tab] 1 tab PO Q4H PRN #30 tab 07/13/20 Ondansetron [Zofran] 4 mg PO Q6H PRN #10 tab 07/13/20 New Medications: Amox/Clavulanate [Augmentin 875-125 Tab] 1 each PO BID #10 tab Codeine/APAP [Tylenol W/Codeine #3 tab] 1 tab PO Q4H PRN #30 tab PRN Reason: Pain Ondansetron [Zofran] 4 mg PO Q6H PRN #10 tab PRN Reason: Nausea / Vomiting Physician Discharge Instructions: Diet: ADA Activity: No lifting more than 10 lbs Followup: Keith Contreras MD [ACTIVE - CAN ADMIT] - 1 Week NONE,NONE [Primary Care Provider] -
[2020-07-13 16:51] VITALS: BP 137/67; TEMP 97.6
[2020-07-13 17:40] VITALS: O2SAT 94
== END 2020-07-13 18:17 | disposition home or self-care (01) ==
LOC: ER 11:42 → ERHOLD 21:50 → INTOOBSV 21:50 → 4TH 22:07
PROVIDERS: ADMIT Internal Medicine; ATTEND Internal Medicine
PROC: 0FT44ZZ Resection of Gallbladder, Percutaneous Endoscopic Approach (ICD-10-PCS; principal; 2020-07-13 07:30)
DX: K80.12 Calculus of gallbladder with acute and chronic cholecystitis without obstruction (principal); E66.01 Morbid (severe) obesity due to excess calories; Z98.84 Bariatric surgery status; Z85.41 Personal history of malignant neoplasm of cervix uteri; E11.9 Type 2 diabetes mellitus without complications; Z20.822 Contact with and (suspected) exposure to COVID-19; E78.5 Hyperlipidemia, unspecified; G47.33 Obstructive sleep apnea (adult) (pediatric); Z79.4 Long term (current) use of insulin; N39.0 Urinary tract infection, site not specified; D50.9 Iron deficiency anemia, unspecified; Z68.43 Body mass index [BMI] 50.0-59.9, adult
CPT/HCPCS: 47562; 93005; 87088; 85025 ×2; 87086; 80048; 36415; 83735; 81025; 85610; 82947 ×5; 80076; 88304; 84443; 84484; 84439; 83690; 83540; 80053; 83880; 84466; 71045; 76705; 94760 ×3; 96375; 96374; 99285; U0003; J2704 ×2; J2550 ×2; J0330; C9113; J3010 ×2; J2543 ×3; J1100; J2270; J2175 ×3; J1170; J2710; J7030 ×3; J2405 ×2; 81003; 81015; G0378; J2250